=== PATIENT | female | born 1940 | race Caucasian/White ===

== ENCOUNTER 2017-10-20 15:23 | Inpatient (IN) | payer MEDICARE, OTHER ==
[2017-10-20] MEDS ORDERED: RX INFO: IV CONTRAST WAS GIVEN 1 EACH MISC MISCELLANE PRN (16:57)
[2017-10-20] MEDS ORDERED: KETOROLAC 30 MG/ML 1 ML VIAL IVP STA (16:57)
--- NOTE | 2017-10-20 16:59 | ED ---
Abdominal Pain HPI - General Chief Complaint: Abdominal Pain Stated Complaint: abd pain Time Seen by Provider: 10/20/17 16:17 Source: patient Mode of arrival: ambulatory Limitations: no limitations - History of Present Illness Initial Comments: 77-year-old female presents emergency Department chief complaint of abdominal pain. Patient states started approximately 2 hours prior arrival. She states it's in her midabdomen sharp pain. She states nonradiating. Denies any chest pain or shortness of breath. Patient denies any fever, chills. She states she is very nauseated and she had a few episodes of vomiting. Patient states that she has no back pain no headache no dizziness. Denies any dysuria hematuria. Patient denies any sick contacts. No diarrhea no constipation. Patient had prior cholecystectomy and states that the pain seems to be similar to when she had problems with her gallbladder. - Related Data Home Medications Medication Instructions Recorded Confirmed Cyclobenzaprine [Flexeril] 5 mg PO Q8HR 08/08/15 08/08/15 HYDROcodone/APAP 7.5-325MG [[place] 1 tab PO Q6HR PRN 08/08/15 08/08/15 7.5-325] hydrOXYzine PAMOATE [Hydroxyzine 50 mg PO Q6H PRN 08/08/15 08/08/15 Pamoate] methylPREDNISolone Dose Pack 4 mg PO DIRECTED 08/08/15 08/08/15 [Medrol Dose Pack] Previous Rx's Medication Instructions Recorded Cyclobenzaprine [Flexeril] 1 - 2 tab PO TID #20 tablet 08/08/15 Ibuprofen [Motrin] 600 mg PO Q6HR PRN #40 day 08/08/15 Omeprazole [PriLOSEC] 10 mg PO AC-BRKFST 14 Days cap 08/08/15 hydrOXYzine PAMOATE [Vistaril] 25 mg PO QID #20 cap 08/08/15 Allergies Allergy/AdvReac Type Severity Reaction Status Date / Time codeine AdvReac Nausea Verified 08/08/15 11:15 Review of Systems ROS Statement: Those systems with pertinent positive or pertinent negative responses have been documented in the HPI. ROS Other: All systems not noted in ROS Statement are negative. Past Medical History Additional Past Medical History / Comment(s): chronic pain History of Any Multi-Drug Resistant Organisms: None Reported Past Surgical History: Cholecystectomy Additional Past Surgical History / Comment(s): hemorroidectomy, cyst from ovary Past Psychological History: No Psychological Hx Reported Smoking Status: Never smoker Past Alcohol Use History: Occasional Past Drug Use History: None Reported General Exam Limitations: no limitations General appearance: alert, in no apparent distress Head exam: Present: atraumatic, normocephalic, normal inspection Respiratory exam: Present: normal lung sounds bilaterally. Absent: respiratory distress, wheezes, rales, rhonchi, stridor Cardiovascular Exam: Present: regular rate, normal rhythm, normal heart sounds. Absent: systolic murmur, diastolic murmur, rubs, gallop, clicks GI/Abdominal exam: Present: soft, tenderness (Moderate midabdominal tenderness) , normal bowel sounds. Absent: distended, guarding, rebound, rigid Back exam: Absent: CVA tenderness (R), CVA tenderness (L) Skin exam: Present: warm, dry, intact, normal color. Absent: rash Course Vital Signs 10/20/17 10/20/17 15:25 18:59 Temperature 97.3 F L 98.7 F Pulse Rate 71 95 Respiratory 18 18 Rate Blood Pressure 187/74 169/75 O2 Sat by Pulse 97 95 Oximetry Medical Decision Making - Lab Data Result diagrams: 10/20/17 16:38 10/20/17 16:38 Lab Results 10/20/17 10/20/17 10/20/17 Range/Units 16:38 16:38 16:38 WBC 14.4 H (3.8-10.6) k/uL RBC 4.58 (3.80-5.40) m/uL Hgb 13.9 (11.4-16.0) gm/dL Hct 43.6 (34.0-46.0) % MCV 95.2 (80.0-100.0) fL MCH 30.4 (25.0-35.0) pg MCHC 31.9 (31.0-37.0) g/dL RDW 12.6 (11.5-15.5) % Plt Count 215 (150-450) k/uL Neutrophils % 85 % Lymphocytes % 10 % Monocytes % 4 % Eosinophils % 1 % Basophils % 0 % Neutrophils # 12.2 H (1.3-7.7) k/uL Lymphocytes # 1.4 (1.0-4.8) k/uL Monocytes # 0.6 (0-1.0) k/uL Eosinophils # 0.1 (0-0.7) k/uL Basophils # 0.0 (0-0.2) k/uL Sodium 143 (137-145) mmol/L Potassium 4.4 (3.5-5.1) mmol/L Chloride 103 (98-107) mmol/L Carbon Dioxide 23 (22-30) mmol/L Anion Gap 17 mmol/L BUN 26 H (7-17) mg/dL Creatinine 0.90 (0.52-1.04) mg/dL Est GFR (CKD-EPI)AfAm 71 (>60 ml/min/1.73 sqM) Est GFR (CKD-EPI)NonAf 61 (>60 ml/min/1.73 sqM) Glucose 128 H (74-99) mg/dL Plasma Lactic Acid David 2.1 H* (0.7-2.0) mmol/L Calcium 9.6 (8.4-10.2) mg/dL Total Bilirubin 0.6 (0.2-1.3) mg/dL AST 33 (14-36) U/L ALT 34 (9-52) U/L Alkaline Phosphatase 84 (38-126) U/L Troponin I (0.000-0.034) ng/mL Total Protein 7.0 (6.3-8.2) g/dL Albumin 4.2 (3.5-5.0) g/dL Amylase 2911 H* (30-110) U/L Lipase >58501 H (23-300) U/L Urine Color Urine Appearance (Clear) Urine pH (5.0-8.0) Ur Specific [place] (1.001-1.035) Urine Protein (Negative) Urine Glucose (UA) (Negative) Urine Blood (Negative) Urine Nitrite (Negative) Urine Bilirubin (Negative) Urine Urobilinogen (<2.0) mg/dL Ur Leukocyte Esterase (Negative) Urine WBC (0-5) /hpf Ur Squamous Epith Cells (0-4) /hpf Amorphous Sediment (None) /hpf Urine Mucus (None) /hpf 10/20/17 10/20/17 Range/Units 16:38 16:38 WBC (3.8-10.6) k/uL RBC (3.80-5.40) m/uL Hgb (11.4-16.0) gm/dL Hct (34.0-46.0) % MCV (80.0-100.0) fL MCH (25.0-35.0) pg MCHC (31.0-37.0) g/dL RDW (11.5-15.5) % Plt Count (150-450) k/uL Neutrophils % % Lymphocytes % % Monocytes % % Eosinophils % % Basophils % % Neutrophils # (1.3-7.7) k/uL Lymphocytes # (1.0-4.8) k/uL Monocytes # (0-1.0) k/uL Eosinophils # (0-0.7) k/uL Basophils # (0-0.2) k/uL Sodium (137-145) mmol/L Potassium (3.5-5.1) mmol/L Chloride (98-107) mmol/L Carbon Dioxide (22-30) mmol/L Anion Gap mmol/L BUN (7-17) mg/dL Creatinine (0.52-1.04) mg/dL Est GFR (CKD-EPI)AfAm (>60 ml/min/1.73 sqM) Est GFR (CKD-EPI)NonAf (>60 ml/min/1.73 sqM) Glucose (74-99) mg/dL Plasma Lactic Acid David (0.7-2.0) mmol/L Calcium (8.4-10.2) mg/dL Total Bilirubin (0.2-1.3) mg/dL AST (14-36) U/L ALT (9-52) U/L Alkaline Phosphatase (38-126) U/L Troponin I <0.012 (0.000-0.034) ng/mL Total Protein (6.3-8.2) g/dL Albumin (3.5-5.0) g/dL Amylase (30-110) U/L Lipase (23-300) U/L Urine Color Yellow Urine Appearance Cloudy H (Clear) Urine pH 7.5 (5.0-8.0) Ur Specific [place] 1.021 (1.001-1.035) Urine Protein 1+ H (Negative) Urine Glucose (UA) Negative (Negative) Urine Blood Negative (Negative) Urine Nitrite Negative (Negative) Urine Bilirubin Negative (Negative) Urine Urobilinogen <2.0 (<2.0) mg/dL Ur Leukocyte Esterase Negative (Negative) Urine WBC 2 (0-5) /hpf Ur Squamous Epith Cells 1 (0-4) /hpf Amorphous Sediment Occasional H (None) /hpf Urine Mucus Rare H (None) /hpf 10/20/17 19:12 EKG performed at 16:56 no sinus rhythm with a rate of 66 PA 184 QRS 80 QT/QTC 410/429 Disposition Clinical Impression: Acute pancreatitis, Abdominal pain Disposition: ADMITTED IP TO THIS HOSP Condition: Fair Referrals: John Tovar MD [Primary Care Provider] - 1-2 days
--- NOTE | 2017-10-20 17:06 | XR ---
EXAMINATION TYPE: XR KUB DATE OF EXAM: 10/20/2017 COMPARISON: NONE HISTORY: Pain and swelling TECHNIQUE: 2 views upright FINDINGS: There is no sign of intestinal obstruction or pneumoperitoneum. Fecal pattern is normal. Ada ng bases show subsegmental atelectasis on the left side. There are no pathologic calcifications over the kidneys. IMPRESSION: Nonacute abdomen.
[2017-10-20] MEDS ORDERED: ONDANSETRON 4 MG/2 ML VIAL IVP STA ×2 (17:08→19:12)
[2017-10-20] MEDS ORDERED: SODIUM CHLORIDE 0.9% 1,000 ML IV ONE ×2 (17:08→19:07)
[2017-10-20 18:40] LABS: ALT 34 U/L (9-52); AST 33 U/L (14-36); Albumin 4.2 g/dL (3.5-5.0); Alkaline Phosphatase 84 U/L (38-126); Anion Gap 17 mmol/L; Blood Urea Nitrogen 26 mg/dL (7-17); Calcium 9.6 mg/dL (8.4-10.2); Carbon Dioxide 23 mmol/L (22-30); Chloride 103 mmol/L (98-107); Glucose 128 mg/dL (74-99); Potassium 4.4 mmol/L (3.5-5.1); Sodium 143 mmol/L (137-145); Total Bilirubin 0.6 mg/dL (0.2-1.3)
[2017-10-20 18:42] LABS: Basophils % (A) 0 %; Eosinophils # (A) 0.1 k/uL (0-0.7); Eosinophils % (A) 1 %; HCT 43.6 % (34.0-46.0); HGB 13.9 gm/dL (11.4-16.0); Lymphocytes # (A) 1.4 k/uL (1.0-4.8); Lymphocytes % (A) 10 %; MCH 30.4 pg (25.0-35.0); MCHC 31.9 g/dL (31.0-37.0); MCV 95.2 fL (80.0-100.0); Monocytes # (A) 0.6 k/uL (0-1.0); Monocytes % (A) 4 %; Neutrophils # (A) 12.2 k/uL (1.3-7.7); Neutrophils % (A) 85 %; Platelet Count 215 k/uL (150-450); RBC 4.58 m/uL (3.80-5.40); RDW 12.6 % (11.5-15.5); WBC 14.4 k/uL (3.8-10.6)
[2017-10-20 18:46] LABS: Amorphous Sediment,Urine Occasional /hpf; Appearance,Urine Cloudy (Clear); Bilirubin,Urine Negative (Negative); Blood,Urine Negative (Negative); Color,Urine Yellow; Glucose,Urine (UA) Negative (Negative); Ketones,Urine 2+ (Negative); Leukocyte Esterase,Urine Negative (Negative); Mucus,Urine Rare /hpf; Nitrite,Urine Negative (Negative); PH, Urine 7.5 (5.0-8.0); Protein,Urine 1+ (Negative); Specific Gravity,Urine 1.021 (1.001-1.035); Squamous Epithelial Cell,Urine 1 /hpf (0-4); Urobilinogen,Urine <2.0 mg/dL (<2.0); WBC,Urine 2 /hpf (0-5)
--- NOTE | 2017-10-20 19:04 | CT ---
EXAMINATION TYPE: CT abdomen pelvis w con DATE OF EXAM: 10/20/2017 COMPARISON: NONE HISTORY: Patient complains of epigastric pain and vomiting. CT DLP: 409.7 mGycm Automated exposure control for dose reduction was used. CONTRAST: CT scan of the abdomen pelvis is performed with IV Contrast, patient injected with 80 mL of Isovue 30 0. FINDINGS- LUNG BASES-subsegmental changes involving the lung bases.. LIVER/GB-2.5 cm hepatic lesion measures 5 Hounsfield units compatible simple cyst.. Postcholecystecto my changes noted. Additional less than 5 mm hypodensity within the inferior margin of the right lobe the liver is too small to characterize. PANCREAS-there are small amount of fluid surrounding the pancreatic head. There is a small amount of fluid in left paracolic Gutter with ill-definition of the peripancreatic fat.. SPLEEN- No gross abnormality is seen. ADRENALS- No gross abnormality is seen. KIDNEYS/BLADDER- no hydronephrosis. Hypodensities within the kidneys are too small to characterize.. BOWEL- no bowel dilatation. Normal appendix. LYMPH NODES- No greater than 1cm abdominal or pelvic lymph nodes are appreciated. OSSEOUS STRUCTURES-hypertrophic and degenerative change of the spine noted.. OTHER- aorta of normal caliber. IMPRESSION- 1. There is a small amount of fluid surrounding the pancreas extending the left paracolic gutter. A f ew prominent small bowel loops are noted in the region. Air is seen distally. Differential diagnosis would include pancreatitis versus enterocolitis or peptic ulcer disease. This would include ischemic enteritis. Correlate clinically.
[2017-10-20 19:06] LABS: Lipase >20000 U/L (23-300)
[2017-10-20 19:07] LABS: Amylase 2911 U/L (30-110)
[2017-10-20] MEDS ORDERED: MORPHINE SULFATE 4 MG/ML SYRINGE IVP STA (19:12)
[2017-10-20] MEDS ORDERED: NALOXONE 0.4 MG/ML 1 ML VIAL IV PRN (19:13)
[2017-10-20] MEDS ORDERED: ONDANSETRON 4 MG/2 ML VIAL IVP PRN (19:13)
[2017-10-20] MEDS ORDERED: LORazepam 2 MG/ML INJ IV PRN (19:13)
[2017-10-20] MEDS ORDERED: SODIUM CHLORIDE 0.9% 1,000 ML IV SCH (19:15)
[2017-10-20] MEDS ORDERED: metroNIDAZOLE-NS PMX 500 MG in SALINE 1 100ML.BAG IVPB STA (19:16)
[2017-10-20] MEDS ORDERED: LEVOFLOXACIN 750MG-D5W PMX 750 MG in DEXTROSE/WATER 1 150ML.BAG IVPB STA (19:16)
[2017-10-20] MEDS ORDERED: MELATONIN 3 MG TABLET PO PRN (20:29)
[2017-10-20] MEDS ORDERED: DOCUSATE 100 MG CAP PO PRN (20:29)
--- NOTE | 2017-10-20 20:33 | P.HPIM ---
History of Present Illness H&P Date: 10/20/17 Chief Complaint: abdominal pain Is a 77-year-old female with a past medical history of prior subarachnoid hemorrhage, chronic pain, and alcohol use who presented to the ER with complaints of sudden onset of abdominal pain. In the ER she underwent an extensive evaluation. On arrival she was found be slightly hypertensive with a blood pressure 187/74. Initial laboratory analysis showed an elevated white blood cell count 14.4, elevated Bielen at 26, slightly elevated lactic acid at 2.1. Her amylase and lipase were severely elevated. Urinalysis was unremarkable. She underwent a CT abdomen and pelvis which showed a small amount of fluid surrounding the pancreas extending into the pericolic gutter. Differential diagnosis was pancreatitis versus enterocolitis or peptic ulcer disease. Possible ischemic enteritis. Patient seen and examined at bedside. She had ate lunch today and then had a small snack. Approximately 30-45 minutes later she started having epigastric pain that radiated down the sound heard abdomen and then into her right and left lower quadrants. 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 She then had 3 episodes of vomiting and decided to present to the hospital. She had 2 additional vomiting episodes of bile only. She states that she had a little bit of abdominal pain yesterday but nothing significant and that went away. She has weight filling been on a weight loss plan and has lost approximately 6 pounds. She denies any recent changes in medication. She only takes an over- the-counter multivitamin and both parents for her pain. She has been taking this for about 5 months. She states that 2 weeks ago she tripped and fell. After that Dr. Tovar sent her for an extensive evaluation. She underwent a CAT scan of her head which per her was negative. She then saw Dr. Villalobos of cardiology and had a negative stress test. She denies any fevers or chills. She has chronic constipation which is unchanged. She has chronic urinary frequency which is unchanged. She has not been sick or ill recently. She denies any cough, cold, shortness of breath, or chest pain. She does drink alcohol but has not had any recent significant changes in this. She states her abdominal pain felt similar to when she had gallbladder issues several years ago. She had a colonoscopy approximately 2 years ago. Review of Systems Positives: Vomiting, abdominal pain Pertinent positives and negatives as discussed in HPI, a complete review of systems was performed and all other systems are negative. Past Medical History Additional Past Medical History / Comment(s): chronic pain, subarachnoid hemorrhage History of Any Multi-Drug Resistant Organisms: None Reported Past Surgical History: Cholecystectomy Additional Past Surgical History / Comment(s): hemorroidectomy, cyst from ovary Past Psychological History: No Psychological Hx Reported Smoking Status: Never smoker Past Alcohol Use History: Occasional Additional Past Alcohol Use History / Comment(s): Has 2-3 beers weekly and one mixed drink Past Drug Use History: None Reported Additional History: Lives alone, no assistive devices - Past Family History Mother Additional Family Medical History / Comment(s): Mother from old age grandmother Additional Family Medical History / Comment(s): Stomach cancer at age 72 Medications and Allergies Home Medications Medication Instructions Recorded Confirmed Type Cyclobenzaprine [Flexeril] 1 - 2 tab PO TID #20 tablet 08/08/15 Rx Cyclobenzaprine [Flexeril] 5 mg PO Q8HR 08/08/15 08/08/15 History HYDROcodone/APAP 7.5-325MG [[place] 1 tab PO Q6HR PRN 08/08/15 08/08/15 History 7.5-325] Ibuprofen [Motrin] 600 mg PO Q6HR PRN #40 day 08/08/15 Rx Omeprazole [PriLOSEC] 10 mg PO AC-BRKFST 14 Days cap 08/08/15 Rx hydrOXYzine PAMOATE [Hydroxyzine 50 mg PO Q6H PRN 08/08/15 08/08/15 History Pamoate] hydrOXYzine PAMOATE [Vistaril] 25 mg PO QID #20 cap 08/08/15 Rx methylPREDNISolone Dose Pack 4 mg PO DIRECTED 08/08/15 08/08/15 History [Medrol Dose Pack] Allergies Allergy/AdvReac Type Severity Reaction Status Date / Time codeine AdvReac Nausea Verified 08/08/15 11:15 Physical Exam Osteopathic Statement: *. No significant issues noted on an osteopathic structural exam other than those noted in the History and Physical/Consult. Vitals: Vital Signs Temp Pulse Resp BP Pulse Ox 10/20/17 18:59 98.7 F 95 18 169/75 95 10/20/17 15:25 97.3 F L 71 18 187/74 97 Intake and Output 10/20/17 10/20/17 10/20/17 06:59 14:59 22:59 Other: Voiding Method Toilet Weight 55.338 kg General: non toxic, mild distress secondary to pain, appears at stated age, normal weight Derm: no unusual rashes/lesions no unusual ecchymoses, warm, dry Head: atraumatic, normocephalic, symmetric Eyes: EOMI, no lid lag, anicteric sclera, pupils equal round reactive to light ENT: Nose and ears atraumatic, no thrush, no pharyngeal erythema Neck: No thyromegaly, no cervical lymphadenopathy, trachea midline, supple Mouth: no lip lesion, mucus membranes moist Cardiovascular: S1S2 reg, no murmur, positive posterior tibial pulse bilateral, no edema, capillary refill less than 2 seconds Lungs: CTA bilateral, no rhonchi, no rales , no accessory muscle use Abdominal: soft, tender to palpation diffusely, no guarding, no appreciable organomegaly, normal bowel sounds Ext: no gross muscle atrophy, muscle strength 5 out of 5 in all 4 extremities grossly, no contractures, Neuro: CN II-XI grossly intact, light touch intact all 4 extremities, finger to nose within normal limits, Psych: Alert, oriented, appropriate affect Results CBC & Chem 7: 10/20/17 16:38 10/20/17 16:38 Labs: Abnormal Lab Results - Last 24 Hours (Table) 10/20/17 10/20/17 10/20/17 Range/Units 16:38 16:38 16:38 WBC 14.4 H (3.8-10.6) k/uL Neutrophils # 12.2 H (1.3-7.7) k/uL BUN 26 H (7-17) mg/dL Glucose 128 H (74-99) mg/dL Plasma Lactic Acid David 2.1 H* (0.7-2.0) mmol/L Amylase 2911 H* (30-110) U/L Lipase >76414 H (23-300) U/L Urine Appearance (Clear) Urine Protein (Negative) Urine Ketones (Negative) Amorphous Sediment (None) /hpf Urine Mucus (None) /hpf 10/20/17 Range/Units 16:38 WBC (3.8-10.6) k/uL Neutrophils # (1.3-7.7) k/uL BUN (7-17) mg/dL Glucose (74-99) mg/dL Plasma Lactic Acid David (0.7-2.0) mmol/L Amylase (30-110) U/L Lipase (23-300) U/L Urine Appearance Cloudy H (Clear) Urine Protein 1+ H (Negative) Urine Ketones 2+ H (Negative) Amorphous Sediment Occasional H (None) /hpf Urine Mucus Rare H (None) /hpf Comments: EKG as reviewed by me revealed normal sinus rhythm at a rate of 66 with normal axis and normal intervals CT scan - abdomen: report reviewed CT scan - pelvis: report reviewed Thrombosis Risk Factor Assmnt - DVT/VTE Prophylaxis DVT/VTE Prophylaxis: Pharmacologic Prophylaxis ordered Assessment and Plan Assessment: Acute Pancreatitis - IVF will increase rate, NPO, pain control - check triglycerides, gallbladder removed - will repeat lipase in the AM to ensure it is down going - [place] II score is 8 due to advanced age. Mild dehydration - IVF - repeat BUN/CR in AM Elevated BP due to pain, not diagnostic of hypertensive urgency - follow BP closely - oral medications is remain greater than 190 Chronic pain - hold NSAID PO - voltaren gel as needed ETOH use - encourage abstinence Recent fall - fall precaution - PT eval Surrogate decision-maker: Nam Montero CODE STATUS:Full, would not want to be kept alive on vent longterm DVT prophylaxis: Lovenox Discussed with: Patient, ED physician, Nursing, family Anticipated discharge: 3-[address]: home with home health A total of 65 minutes was spent on the care of this complex patient more than 50 % of the time was spent in counseling and care coordination.
[2017-10-20] MEDS: LACTATED RINGERS 1,000 ML IV SCH (21:53)
[2017-10-21 02:05] VITALS: BMI 24.0
[2017-10-21] MEDS: MORPHINE SULFATE 4 MG/ML SYRINGE IV PRN ×2 (02:07→22:33)
[2017-10-21] MEDS: LACTATED RINGERS 1,000 ML IV SCH ×4 (06:20→22:35)
[2017-10-21 08:00] LABS: HCT 36.1 % (34.0-46.0); HGB 11.7 gm/dL (11.4-16.0); MCH 30.9 pg (25.0-35.0); MCHC 32.4 g/dL (31.0-37.0); MCV 95.1 fL (80.0-100.0); Mean Platelet Volume 7.6; Platelet Count 186 k/uL (150-450); RBC 3.79 m/uL (3.80-5.40); RDW 12.6 % (11.5-15.5); WBC 7.6 k/uL (3.8-10.6)
[2017-10-21 08:09] LABS: ALT 39 U/L (9-52); AST 26 U/L (14-36); Albumin 3.2 g/dL (3.5-5.0); Alkaline Phosphatase 57 U/L (38-126); Anion Gap 10 mmol/L; Blood Urea Nitrogen 14 mg/dL (7-17); Calcium 8.2 mg/dL (8.4-10.2); Carbon Dioxide 25 mmol/L (22-30); Chloride 105 mmol/L (98-107); Cholesterol 144 mg/dL (<200); Glucose 99 mg/dL (74-99); HDL Cholesterol 53 mg/dL (40-60); LDL Cholesterol,Calculated 72 mg/dL (0-99); Potassium 3.9 mmol/L (3.5-5.1); Sodium 140 mmol/L (137-145); Total Bilirubin 0.7 mg/dL (0.2-1.3); Total Protein 5.4 g/dL (6.3-8.2); Triglycerides 97 mg/dL (<150)
[2017-10-21] MEDS: ENOXAPARIN 40 MG/0.4 ML SYRINGE SQ SCH (08:38)
[2017-10-21] MEDS: PANTOPRAZOLE 40 MG/10 ML VIAL IV SCH (08:38)
[2017-10-21] MEDS: KETOROLAC 30 MG/ML 1 ML VIAL IVP PRN (11:49)
--- NOTE | 2017-10-21 13:39 | P.PN ---
Subjective Progress Note Date: 10/21/17 Principal diagnosis: Abdominal pain Patient was having 4 out of 10 abdominal pain this morning, she was given some morphine. No nausea or vomiting. Patient told me that she drinks 3-4 beers in addition to 2 shots of martini a week. Objective - Vital Signs Vital signs: Vital Signs Temp 98.7 F 10/21/17 06:15 Pulse 91 10/21/17 06:15 Resp 16 10/21/17 06:15 BP 150/73 10/21/17 06:15 Pulse Ox 97 10/21/17 06:15 Intake & Output 10/20/17 10/21/17 10/21/17 18:59 06:59 18:59 Weight 55.338 kg 59.5 kg Other: Voiding Method Toilet Toilet # Voids 2 - Exam Constitutional: No acute distress, conversant, pleasant Eyes:Anicteric sclerae, moist conjunctiva, no lid-lag, PERRLA, ENMT: Oropharynx clear, no erythema, exudates Neck: Supple, FROM, no masses, or JVD, No carotid bruits, No thyromegaly Lungs: Clear to auscultation, Clear to percussion, Normal respiratory effort, no accessory muscle use Cardiovascular: Heart regular in rate and rhythm, No murmurs, gallops, or rubs, No peripheral edema Abdominal: Soft, nonspecific diffuse abdominal tenderness, no guarding, rebound or rigidity, Normoactive bowel sounds, No hepatomegaly, No splenomegaly, No palpable mass Skin: Normal temperature, tone, texture, turgor, no induration, No subcutaneous nodules, No rash, lesions, No ulcers Extremities: No digital cyanosis, No clubbing, Pedal pulses intact and symmetrical, Radial pulses intact and symmetrical, No calf tenderness Psychiatric: Alert and oriented to person, place and time, appropriate affect, intact judgement Neuro: Muscles Strength 5/5 in all 4 extremities, Sensation to light touch grossly present throughout, Cranial nerves II-XII grossly intact, no focal sensory deficits - Labs CBC & Chem 7: 10/21/17 07:17 10/21/17 07:17 Labs: Abnormal Lab Results - Last 24 Hours (Table) 10/20/17 10/20/17 10/20/17 Range/Units 16:38 16:38 16:38 WBC 14.4 H (3.8-10.6) k/uL RBC (3.80-5.40) m/uL Neutrophils # 12.2 H (1.3-7.7) k/uL BUN 26 H (7-17) mg/dL Glucose 128 H (74-99) mg/dL Plasma Lactic Acid David 2.1 H* (0.7-2.0) mmol/L Calcium (8.4-10.2) mg/dL Total Protein (6.3-8.2) g/dL Albumin (3.5-5.0) g/dL Amylase 2911 H* (30-110) U/L Lipase >09333 H (23-300) U/L Urine Appearance (Clear) Urine Protein (Negative) Urine Ketones (Negative) Amorphous Sediment (None) /hpf Urine Mucus (None) /hpf 10/20/17 10/21/17 10/21/17 Range/Units 16:38 07:17 07:17 WBC (3.8-10.6) k/uL RBC 3.79 L (3.80-5.40) m/uL Neutrophils # (1.3-7.7) k/uL BUN (7-17) mg/dL Glucose (74-99) mg/dL Plasma Lactic Acid David (0.7-2.0) mmol/L Calcium 8.2 L (8.4-10.2) mg/dL Total Protein 5.4 L (6.3-8.2) g/dL Albumin 3.2 L (3.5-5.0) g/dL Amylase (30-110) U/L Lipase (23-300) U/L Urine Appearance Cloudy H (Clear) Urine Protein 1+ H (Negative) Urine Ketones 2+ H (Negative) Amorphous Sediment Occasional H (None) /hpf Urine Mucus Rare H (None) /hpf Assessment and Plan Plan: Acute Pancreatitis - Continue IVF, NPO, pain control - Patient not sure if she had her gallbladder removed, will check right upper quadrant ultrasound - Triglycerides levels within normal limits - Will repeat lipase in the AM to ensure it is down going Mild dehydration - IVF - Repeat BUN/CR in AM Elevated BP due to pain, not diagnostic of HTN - BP still slightly elevated Recent fall - fall precaution - PT eval
--- NOTE | 2017-10-21 14:45 | P.GSCN ---
History of Present Illness Consult date: 10/21/17 Reason for Consult: Pancreatitis History of present illness: The patient is a 77-year-old female who began having some abdominal discomfort on Sunday. It felt like heartburn or discomfort in the mid abdomen. Yesterday she had a return of pain after eating some beef stew for lunch and was worse. She developed some nausea and vomiting so came into the emergency department. Denies any previous history of pancreatitis. She has had previous open cholecystectomy. She admits to drinking 2 beers earlier in the week. Prior to that it began about 5 days. No new medications. Review of Systems All systems: negative Past Medical History Additional Past Medical History / Comment(s): Chronic pain, subarachnoid hemorrhage History of Any Multi-Drug Resistant Organisms: None Reported Past Surgical History: Cholecystectomy Additional Past Surgical History / Comment(s): Hemorrhoidectomy, ovarian cyst, colonoscopy Past Anesthesia/Blood Transfusion Reactions: No Reported Reaction Past Psychological History: No Psychological Hx Reported Smoking Status: Never smoker Past Alcohol Use History: Occasional Additional Past Alcohol Use History / Comment(s): Has 2-3 beers weekly and one mixed drink. Past Drug Use History: None Reported - Past Family History Mother Additional Family Medical History / Comment(s): Mother from old age grandmother Additional Family Medical History / Comment(s): Stomach cancer at age 72 Medications and Allergies Home Medications Medication Instructions Recorded Confirmed Type Diclofenac Sodium [Voltaren] 75 mg PO BID PRN 10/21/17 10/21/17 History Allergies Allergy/AdvReac Type Severity Reaction Status Date / Time codeine AdvReac Abdominal Verified 10/21/17 11:04 Pain Surgical - Exam Osteopathic Statement: *. No significant issues noted on an osteopathic structural exam other than those noted in the History and Physical/Consult. Vital Signs Temp Pulse Resp BP Pulse Ox 97.3 F L 71 18 187/74 97 10/20/17 15:25 10/20/17 15:25 10/20/17 15:25 10/20/17 15:25 10/20/17 15:25 - General well developed, well nourished, no distress - Eyes normal ocular movement - ENT normal mucosa - Neck trachea midline - Respiratory normal expansion, normal respiratory effort, clear to auscultation - Cardiovascular Rhythm: regular - Abdomen Abdomen: soft, tender (Mild epigastric), bowel sounds, surgical scars (Right subcostal), no guarding, no rigid, no rebound, no distended Results - Labs 10/21/17 07:17 10/21/17 07:17 Abnormal Lab Results - Last 24 Hours (Table) 10/20/17 10/20/17 10/20/17 Range/Units 16:38 16:38 16:38 WBC 14.4 H (3.8-10.6) k/uL RBC (3.80-5.40) m/uL Neutrophils # 12.2 H (1.3-7.7) k/uL BUN 26 H (7-17) mg/dL Glucose 128 H (74-99) mg/dL Plasma Lactic Acid David 2.1 H* (0.7-2.0) mmol/L Calcium (8.4-10.2) mg/dL Total Protein (6.3-8.2) g/dL Albumin (3.5-5.0) g/dL Amylase 2911 H* (30-110) U/L Lipase >88878 H (23-300) U/L Urine Appearance (Clear) Urine Protein (Negative) Urine Ketones (Negative) Amorphous Sediment (None) /hpf Urine Mucus (None) /hpf 10/20/17 10/21/17 10/21/17 Range/Units 16:38 07:17 07:17 WBC (3.8-10.6) k/uL RBC 3.79 L (3.80-5.40) m/uL Neutrophils # (1.3-7.7) k/uL BUN (7-17) mg/dL Glucose (74-99) mg/dL Plasma Lactic Acid David (0.7-2.0) mmol/L Calcium 8.2 L (8.4-10.2) mg/dL Total Protein 5.4 L (6.3-8.2) g/dL Albumin 3.2 L (3.5-5.0) g/dL Amylase (30-110) U/L Lipase (23-300) U/L Urine Appearance Cloudy H (Clear) Urine Protein 1+ H (Negative) Urine Ketones 2+ H (Negative) Amorphous Sediment Occasional H (None) /hpf Urine Mucus Rare H (None) /hpf Diabetes panel 10/20/17 10/21/17 Range/Units 16:38 07:17 Sodium 143 140 (137-145) mmol/L Potassium 4.4 3.9 (3.5-5.1) mmol/L Chloride 103 105 (98-107) mmol/L Carbon Dioxide 23 25 (22-30) mmol/L BUN 26 H 14 (7-17) mg/dL Creatinine 0.90 0.70 (0.52-1.04) mg/dL Glucose 128 H 99 (74-99) mg/dL Calcium 9.6 8.2 L (8.4-10.2) mg/dL AST 33 26 (14-36) U/L ALT 34 39 (9-52) U/L Alkaline Phosphatase 84 57 (38-126) U/L Total Protein 7.0 5.4 L (6.3-8.2) g/dL Albumin 4.2 3.2 L (3.5-5.0) g/dL Triglycerides 97 (<150) mg/dL HDL Cholesterol 53 (40-60) mg/dL Calcium panel 10/20/17 10/21/17 Range/Units 16:38 07:17 Calcium 9.6 8.2 L (8.4-10.2) mg/dL Albumin 4.2 3.2 L (3.5-5.0) g/dL Pituitary panel 10/20/17 10/21/17 Range/Units 16:38 07:17 Sodium 143 140 (137-145) mmol/L Potassium 4.4 3.9 (3.5-5.1) mmol/L Chloride 103 105 (98-107) mmol/L Carbon Dioxide 23 25 (22-30) mmol/L BUN 26 H 14 (7-17) mg/dL Creatinine 0.90 0.70 (0.52-1.04) mg/dL Glucose 128 H 99 (74-99) mg/dL Calcium 9.6 8.2 L (8.4-10.2) mg/dL Adrenal panel 10/20/17 10/21/17 Range/Units 16:38 07:17 Sodium 143 140 (137-145) mmol/L Potassium 4.4 3.9 (3.5-5.1) mmol/L Chloride 103 105 (98-107) mmol/L Carbon Dioxide 23 25 (22-30) mmol/L BUN 26 H 14 (7-17) mg/dL Creatinine 0.90 0.70 (0.52-1.04) mg/dL Glucose 128 H 99 (74-99) mg/dL Calcium 9.6 8.2 L (8.4-10.2) mg/dL Total Bilirubin 0.6 0.7 (0.2-1.3) mg/dL AST 33 26 (14-36) U/L ALT 34 39 (9-52) U/L Alkaline Phosphatase 84 57 (38-126) U/L Total Protein 7.0 5.4 L (6.3-8.2) g/dL Albumin 4.2 3.2 L (3.5-5.0) g/dL - Imaging CT scan - abdomen: report reviewed, image reviewed Assessment and Plan (1) Abdominal pain Current Visit: Yes Status: Acute Code(s): R10.9 - UNSPECIFIED ABDOMINAL PAIN SNOMED Code(s): 49642507 (2) Acute pancreatitis Current Visit: Yes Status: Acute Code(s): K85.90 - ACUTE PANCREATITIS WITHOUT NECROSIS OR INFECTION, UNSP SNOMED Code(s): 147202498 Plan: The patient has had previous cholecystectomy. Therefore I doubt biliary cause. Recommend GI consult. Nonsurgical.
[2017-10-21] MEDS: ACETAMINOPHEN TAB 325 MG TAB PO PRN (18:07)
[2017-10-22] MEDS: LACTATED RINGERS 1,000 ML IV SCH ×3 (06:05→18:26)
[2017-10-22 08:13] LABS: Basophils % (A) 0 %; Eosinophils # (A) 0.2 k/uL (0-0.7); Eosinophils % (A) 2 %; HCT 35.4 % (34.0-46.0); HGB 11.5 gm/dL (11.4-16.0); Lymphocytes % (A) 12 %; MCH 30.5 pg (25.0-35.0); MCHC 32.4 g/dL (31.0-37.0); MCV 94.4 fL (80.0-100.0); Mean Platelet Volume 7.9; Monocytes # (A) 0.4 k/uL (0-1.0); Monocytes % (A) 4 %; Neutrophils % (A) 81 %; Platelet Count 178 k/uL (150-450); RBC 3.75 m/uL (3.80-5.40); RDW 12.6 % (11.5-15.5); WBC 8.7 k/uL (3.8-10.6)
[2017-10-22 08:38] LABS: ALT 33 U/L (9-52); AST 23 U/L (14-36); Albumin 2.9 g/dL (3.5-5.0); Alkaline Phosphatase 50 U/L (38-126); Anion Gap 8 mmol/L; Blood Urea Nitrogen 8 mg/dL (7-17); Calcium 8.2 mg/dL (8.4-10.2); Carbon Dioxide 26 mmol/L (22-30); Chloride 104 mmol/L (98-107); Glucose 80 mg/dL (74-99); Lipase 1237 U/L (23-300); Magnesium 1.8 mg/dL (1.6-2.3); Phosphorus 2.7 mg/dL (2.5-4.5); Potassium 3.9 mmol/L (3.5-5.1); Sodium 138 mmol/L (137-145); Total Bilirubin 0.9 mg/dL (0.2-1.3); Total Protein 5.1 g/dL (6.3-8.2)
[2017-10-22 08:58] LABS: Amylase 304 U/L (30-110)
[2017-10-22] MEDS: KETOROLAC 30 MG/ML 1 ML VIAL IVP PRN (09:06)
[2017-10-22] MEDS: PANTOPRAZOLE 40 MG/10 ML VIAL IV SCH (09:06)
[2017-10-22] MEDS: ENOXAPARIN 40 MG/0.4 ML SYRINGE SQ SCH (09:06)
[2017-10-22 10:30] LABS: IgG Subclass 3 30.1 mg/dL (11.0-85.0); IgG Subclass 4 18.6 mg/dL (3.0-175.0)
--- NOTE | 2017-10-22 12:12 | P.PN ---
Subjective Progress Note Date: 10/22/17 Principal diagnosis: Abdominal pain Patient is feeling better, still having some abdominal pain but that is improved. Vomited. Objective - Vital Signs Vital signs: Vital Signs Temp 100.1 F H 10/22/17 06:49 Pulse 92 10/22/17 06:49 Resp 18 10/22/17 06:49 BP 129/65 10/22/17 06:49 Pulse Ox 94 L 10/22/17 06:49 Intake & Output 10/21/17 10/22/17 10/22/17 18:59 06:59 18:59 Other: Voiding Method Toilet Toilet # Voids 3 2 - Exam Constitutional: No acute distress, conversant, pleasant Eyes:Anicteric sclerae, moist conjunctiva, no lid-lag, PERRLA, ENMT: Oropharynx clear, no erythema, exudates Neck: Supple, FROM, no masses, or JVD, No carotid bruits, No thyromegaly Lungs: Clear to auscultation, Clear to percussion, Normal respiratory effort, no accessory muscle use Cardiovascular: Heart regular in rate and rhythm, No murmurs, gallops, or rubs, No peripheral edema Abdominal: Soft, nonspecific diffuse abdominal tenderness, no guarding, rebound or rigidity, Normoactive bowel sounds, No hepatomegaly, No splenomegaly, No palpable mass Skin: Normal temperature, tone, texture, turgor, no induration, No subcutaneous nodules, No rash, lesions, No ulcers Extremities: No digital cyanosis, No clubbing, Pedal pulses intact and symmetrical, Radial pulses intact and symmetrical, No calf tenderness Psychiatric: Alert and oriented to person, place and time, appropriate affect, intact judgement Neuro: Muscles Strength 5/5 in all 4 extremities, Sensation to light touch grossly present throughout, Cranial nerves II-XII grossly intact, no focal sensory deficits - Labs CBC & Chem 7: 10/22/17 08:00 10/22/17 08:00 Labs: Abnormal Lab Results - Last 24 Hours (Table) 10/22/17 10/22/17 Range/Units 08:00 08:00 RBC 3.75 L (3.80-5.40) m/uL Calcium 8.2 L (8.4-10.2) mg/dL Total Protein 5.1 L (6.3-8.2) g/dL Albumin 2.9 L (3.5-5.0) g/dL Amylase 304 H* (30-110) U/L Lipase 1237 H (23-300) U/L Assessment and Plan Plan: Acute Pancreatitis - Continue IVF, NPO, pain control - Likely secondary to EtOH abuse - Status post cholecystectomy, surgery consulted--gallstones unlikely - Triglycerides levels within normal limits - Amylase and lipase trending down, continued to trend Mild dehydration - IVF Elevated BP due to pain, -Resolved -Not diagnostic of HTN -BP still slightly elevated Recent fall - fall precaution - PT eval
[2017-10-22 12:27] LABS: Procalcitonin 0.02 ng/mL (0.02-0.09)
[2017-10-22] MEDS: ACETAMINOPHEN TAB 325 MG TAB PO PRN (18:41)
[2017-10-22] MEDS: MORPHINE SULFATE 4 MG/ML SYRINGE IV PRN (20:48)
[2017-10-23] MEDS: LACTATED RINGERS 1,000 ML IV SCH ×4 (02:53→20:31)
[2017-10-23] MEDS: PANTOPRAZOLE 40 MG/10 ML VIAL IV SCH ×2 (08:14→08:24)
[2017-10-23] MEDS: ENOXAPARIN 40 MG/0.4 ML SYRINGE SQ SCH ×2 (08:14→08:24)
[2017-10-23] MEDS: KETOROLAC 30 MG/ML 1 ML VIAL IVP PRN (08:24)
[2017-10-23 08:42] LABS: Basophils % (A) 0 %; Eosinophils # (A) 0.2 k/uL (0-0.7); Eosinophils % (A) 2 %; HCT 35.2 % (34.0-46.0); HGB 11.2 gm/dL (11.4-16.0); Lymphocytes % (A) 10 %; MCH 30.1 pg (25.0-35.0); MCHC 31.9 g/dL (31.0-37.0); MCV 94.3 fL (80.0-100.0); Mean Platelet Volume 7.9; Monocytes # (A) 0.5 k/uL (0-1.0); Monocytes % (A) 5 %; Neutrophils # (A) 7.8 k/uL (1.3-7.7); Neutrophils % (A) 81 %; Platelet Count 175 k/uL (150-450); RBC 3.73 m/uL (3.80-5.40); RDW 12.4 % (11.5-15.5); WBC 9.7 k/uL (3.8-10.6)
[2017-10-23 09:01] LABS: Amylase 123 U/L (30-110); Anion Gap 14 mmol/L; Blood Urea Nitrogen 10 mg/dL (7-17); Calcium 8.4 mg/dL (8.4-10.2); Carbon Dioxide 23 mmol/L (22-30); Chloride 101 mmol/L (98-107); Glucose 64 mg/dL (74-99); Lipase 464 U/L (23-300); Potassium 4.3 mmol/L (3.5-5.1); Sodium 138 mmol/L (137-145)
--- NOTE | 2017-10-23 09:31 | P.PN ---
Subjective Progress Note Date: 10/23/17 Principal diagnosis: Patient seen in follow-up for acute pancreatitis Patient is seen and examined today, continues to have epigastric abdominal pain denies any nausea or vomiting. She is eager to eat. Denies passing bowel movements. Denies any fevers or chills. However she still reports asking for IV opiates to control her pain Objective - Vital Signs Vital signs: Vital Signs Temp 99.9 F H 10/23/17 07:00 Pulse 77 10/23/17 07:00 Resp 16 10/23/17 08:00 BP 118/50 10/23/17 07:00 Pulse Ox 94 L 10/23/17 07:00 Intake & Output 10/22/17 10/23/17 10/23/17 18:59 06:59 18:59 Intake Total 0 Balance 0 Intake: Oral 0 Other: Voiding Method Toilet Toilet # Voids 1 4 # Bowel Movements 0 - Exam Constitutional: vital signs stable, Not in acute distress, pleasant, conversant Lungs: Clear to auscultation bilaterally, clear to percussion, normal respiratory effort Cardiovascular: Regular rate and rhythm, no murmurs, no gallops, no rubs, no peripheral edema Gastrointestinal: Soft, positive tenderness to palpation over the epigastric region no rebound tenderness, positive voluntary guarding, no palpable hepatosplenomegally, bowel sounds positive Extremities: No digital cyanosis or clubbing, peripheral pulses palpable and equal over bilateral radial arteries and dorsalis pedis artery, no calf muscle tenderness Psych: Alert, oriented to place, person and time, appropriate affect, intact judgment - Labs CBC & Chem 7: 10/23/17 08:06 10/23/17 08:06 Labs: Abnormal Lab Results - Last 24 Hours (Table) 10/21/17 10/23/17 10/23/17 Range/Units 07:17 08:06 08:06 RBC 3.73 L (3.80-5.40) m/uL Hgb 11.2 L (11.4-16.0) gm/dL Neutrophils # 7.8 H (1.3-7.7) k/uL Glucose 64 L (74-99) mg/dL Amylase 123 H (30-110) U/L Lipase 464 H (23-300) U/L IgG1 402.0 L (405.0-1011.0) mg/dL Assessment and Plan Assessment: 77-year-old female with history of cholecystectomy, no history of pancreatitis. Presented with abdominal pain found to have acute pancreatitis, there is no clear cause for pancreatitis except for suspected alcohol which patient denies any heavy alcohol intake or any regular alcohol intake. Plan: # Acute pancreatitis unclear cause, possibly related to her alcohol intake, which she claims to be occasional , however this episode has happened after drinking alcohol continues to have epigastric pain , no nausea or vomiting continue with NPO transition to PO pain control, if this is successful in controlling her pain, possibly i would advance her diet to clear liquids by dinner time switch IV PPi to PO pepcid labs improving Status post cholecystectomy, surgery consulted--gallstones unlikely GI consultation for further input regarding causes of her acute pancreatitis attack #. Mild anemia could be dilutional component with iv fluids no evidence of GI bleeding at this time continue to monitor #Recent fall fall precaution PT eval #DVT prophylaxis Lovenox Plan is to see the patient tolerates by mouth painkillers that's the case I will advance her diet to clear liquids overnight at dinnertime and then advance it as tolerated in the morning to be ready for discharge tomorrow
[2017-10-23] MEDS: HYDROcodone/APAP 5-325MG 1 EACH TAB PO PRN ×2 (14:08→22:14)
[2017-10-23] MEDS: FAMOTIDINE 20 MG TAB PO SCH (20:31)
[2017-10-24] MEDS: LACTATED RINGERS 1,000 ML IV SCH ×3 (04:54→17:52)
[2017-10-24] MEDS: HYDROcodone/APAP 5-325MG 1 EACH TAB PO PRN ×3 (04:54→18:49)
[2017-10-24 08:10] LABS: HCT 30.6 % (34.0-46.0); MCH 30.5 pg (25.0-35.0); MCHC 32.6 g/dL (31.0-37.0); MCV 93.6 fL (80.0-100.0); Mean Platelet Volume 8.4; Platelet Count 163 k/uL (150-450); RBC 3.27 m/uL (3.80-5.40); RDW 12.4 % (11.5-15.5); WBC 8.3 k/uL (3.8-10.6)
[2017-10-24 08:33] LABS: Anion Gap 10 mmol/L; Blood Urea Nitrogen 8 mg/dL (7-17); Calcium 8.1 mg/dL (8.4-10.2); Carbon Dioxide 24 mmol/L (22-30); Chloride 103 mmol/L (98-107); Glucose 69 mg/dL (74-99); Potassium 3.7 mmol/L (3.5-5.1); Sodium 137 mmol/L (137-145)
[2017-10-24] MEDS: ENOXAPARIN 40 MG/0.4 ML SYRINGE SQ SCH (09:08)
[2017-10-24] MEDS: FAMOTIDINE 20 MG TAB PO SCH ×2 (09:09→21:42)
--- NOTE | 2017-10-24 09:34 | P.CONS ---
History of Present Illness - Reason for Consult Consult date: 10/24/17 pancreatitis Requesting physician: Maty Roland - History of Present Illness 77-year-old female history of chronic pain subarachnoid hemorrhage admitted 4 days ago with upper abdominal pain nonradiating without fever chills hematemesis hematochezia or melena. Intermittent nausea with a few nonbloody emesis. History of cholecystectomy late /gallstones and occasional alcohol consumption. Drinks 2-3 beers every 2 weeks nothing heavy no history of alcoholism. Last drink of alcohol more than a week ago. Consult requested for pancreatitis. No history of pancreatitis. Denies symptoms of dyspepsia reflux prior to onset of pain. No history of peptic ulcer disease. No changes in medications. Admission hemoglobin 13.9. White count 14.4. Lipase greater than 20,000. Amylase 2911. LFTs within normal limits. Troponin less than 0.012. Triglycerides 97. IgG subclass 1-4 unremarkable. Lipase yesterday improved 464. Amylase 123. LFTs remain within normal limits. T-max 100.3. CT with IV contrast 2.5 cm hepatic lesion compatible with simple cyst. Small amount of fluid surrounding the pancreatic head and left paracolic gutter ill-definition of peripancreatic fat. Review of Systems Constitutional: Denies fever, chills, sweats, weight gain, or loss. HEENT: Negative for migraines, blurred vision or loss, earaches, drainage, tinnitus, oral mucosal lesions, dysphagia, or odynophagia. CARDIAC: Negative for chest pain, arrhythmias, or palpitation. RESPIRATORY: Negative for shortness of breath, hemoptysis, cough, or sputum production. GI: See HPI for pertinent findings. : Negative for hematuria, urgency, frequency, polyuria, or dysuria. GYNc: Negative vaginal discharge. MUSCULOSKELETAL: History chronic pain. NEUROLOGIC: Negative for stroke or TIA. ENDOCRINE: Negative for thyroid problems. SKIN: Negative for rash or itching. PSYCHIATRIC: Negative history for depression and anxiety Past Medical History Additional Past Medical History / Comment(s): Chronic pain, subarachnoid hemorrhage History of Any Multi-Drug Resistant Organisms: None Reported Past Surgical History: Cholecystectomy Additional Past Surgical History / Comment(s): Hemorrhoidectomy, ovarian cyst, colonoscopy Past Anesthesia/Blood Transfusion Reactions: No Reported Reaction Past Psychological History: No Psychological Hx Reported Smoking Status: Never smoker Past Alcohol Use History: Occasional Additional Past Alcohol Use History / Comment(s): Has 2-3 beers weekly and one mixed drink. Past Drug Use History: None Reported - Past Family History Mother Additional Family Medical History / Comment(s): Mother from old age grandmother Additional Family Medical History / Comment(s): Stomach cancer at age 72 Medications and Allergies Home Medications Medication Instructions Recorded Confirmed Type Diclofenac Sodium [Voltaren] 75 mg PO BID PRN 10/21/17 10/21/17 History Allergies Allergy/AdvReac Type Severity Reaction Status Date / Time codeine AdvReac Abdominal Verified 10/21/17 11:04 Pain Physical Exam Vitals: Vital Signs Temp Pulse Resp BP Pulse Ox 10/23/17 23:00 99.3 F 86 17 148/73 95 10/23/17 14:50 99.0 F 80 18 136/67 95 10/23/17 08:00 16 Intake and Output 10/23/17 10/24/17 10/24/17 22:59 06:59 14:59 Other: Voiding Method Toilet Toilet # Voids 2 1 General appearance: The patient is alert, oriented, in no acute distress. HET: Head is normocephalic and atraumatic. Pupils are equal and reactive. Oropharynx is clear without lesions. Neck: Supple without lymphadenopathy. Trachea midline. Heart: S1 S2. Regular rate and rhythm. Lungs: No crackles or wheezes are heard. Abdomen: Soft, nontender, nondistended with bowel sounds. No peritoneal signs. No palpable organomegaly or masses. Extremities: Normal skin color and turgor. No cyanosis, rash, ulceration, clubbing, or edema. Radial and pedal pulses are 2/4 bilaterally. Neurological: No focal deficits. Strength and sensation are grossly intact. Results CBC & Chem 7: 10/24/17 07:38 10/24/17 07:38 Labs: Abnormal Lab Results - Last 24 Hours (Table) 10/23/17 10/23/17 Range/Units 08:06 08:06 RBC 3.73 L (3.80-5.40) m/uL Hgb 11.2 L (11.4-16.0) gm/dL Neutrophils # 7.8 H (1.3-7.7) k/uL Glucose 64 L (74-99) mg/dL Amylase 123 H (30-110) U/L Lipase 464 H (23-300) U/L CT scan - abdomen: report reviewed (Dr. Sun) Assessment and Plan (1) Acute pancreatitis Narrative/Plan: Idiopathic. Etiology unclear possible passage of microlithiasis with gross elevation of lipase on admission with marked improvement within 24 hours doubt alcohol component patient drinks a few beers every 2-3 weeks. No clear indication to suggest autoimmune disease IgG panel unremarkable. Peptic ulcer disease low within the differential considering patient had no symptoms of indigestion GI bleed GERD prior to onset of pain. Current Visit: Yes Status: Acute Code(s): K85.90 - ACUTE PANCREATITIS WITHOUT NECROSIS OR INFECTION, UNSP SNOMED Code(s): 294154918 Plan: 1. Continue GI prophylaxis Protonix 40 mg daily. Patient's pain is improved greatly. 2. Low-fat diet. Return office 10-14 days for reevaluation we'll obtain a CA- 19-9 and SHANDRA marker. 3. Discharge per medicine. Thank you for this kind referral and the opportunity to participate in the care of your patient. This consultation was discussed with Dr. Sun. The impression and plan of care have been directed as dictated.
[2017-10-24 10:13] LABS: Amylase 88 U/L (30-110); Lipase 396 U/L (23-300)
--- NOTE | 2017-10-24 13:47 | P.PN ---
Subjective Progress Note Date: 10/24/17 Principal diagnosis: Patient seen in follow-up for acute pancreatitis Patient is seen and examined today, patient is tolerating liquid diet, continues to have some epigastric abdominal pain well controlled with [place] denies any nausea or vomiting. Denies any chest pain or trouble breathing. Reports some constipation Objective - Vital Signs Vital signs: Vital Signs Temp 99.0 F 10/24/17 06:50 Pulse 71 10/24/17 06:50 Resp 16 10/24/17 06:50 BP 122/62 10/24/17 06:50 Pulse Ox 93 L 10/24/17 06:50 Intake & Output 10/23/17 10/24/17 10/24/17 18:59 06:59 18:59 Intake Total 290 Balance 290 Weight 59.5 kg Intake: Oral 290 Other: Voiding Method Toilet Toilet # Voids 1 1 - Exam Constitutional: vital signs stable, Not in acute distress, pleasant, conversant Lungs: Clear to auscultation bilaterally, clear to percussion, normal respiratory effort Cardiovascular: Regular rate and rhythm, no murmurs, no gallops, no rubs, no peripheral edema Gastrointestinal: Soft, positive tenderness to palpation over the epigastric region with gentle percussion and deep palpation, no rebound tenderness, bowel sounds positive Extremities: No digital cyanosis or clubbing, peripheral pulses palpable and equal , no calf muscle tenderness Psych: Alert, oriented to place, person and time, appropriate affect, intact judgment - Labs CBC & Chem 7: 10/24/17 07:38 10/24/17 07:38 Labs: Abnormal Lab Results - Last 24 Hours (Table) 10/24/17 10/24/17 10/24/17 Range/Units 07:38 07:38 07:38 RBC 3.27 L (3.80-5.40) m/uL Hgb 10.0 L (11.4-16.0) gm/dL Hct 30.6 L (34.0-46.0) % Glucose 69 L (74-99) mg/dL Calcium 8.1 L (8.4-10.2) mg/dL Lipase 396 H (23-300) U/L Assessment and Plan Assessment: 77-year-old female with history of cholecystectomy, no history of pancreatitis. Presented with abdominal pain found to have acute pancreatitis, there is no clear cause for pancreatitis except for suspected alcohol which patient denies any heavy alcohol intake or any regular alcohol intake. Plan: # Acute pancreatitis unclear cause, possibly related to her alcohol intake, which she claims to be occasional , however this episode has happened after drinking alcohol continues to have epigastric pain , no nausea or vomiting Tolerating by mouth intake with liquids Pain controlled with by mouth pain meds labs improving Status post cholecystectomy, surgery consulted--gallstones unlikely GI consultation for further input regarding causes of her acute pancreatitis attack , recommending outpatient follow-up and workup #. Mild anemia could be dilutional component with iv fluids no evidence of GI bleeding at this time continue to monitor GI following #Recent fall fall precaution PT eval #DVT prophylaxis Lovenox Patient continues to have epigastric tenderness with gentle palpation, she is requiring by mouth [place] every 4-5 hours. She is tolerating liquid diet. I think patient will benefit from one more day with IV fluid hydration Advance diet to regular in the morning Possible discharge tomorrow
[2017-10-25] MEDS: LACTATED RINGERS 1,000 ML IV SCH ×4 (01:04→20:50)
[2017-10-25] MEDS: HYDROcodone/APAP 5-325MG 1 EACH TAB PO PRN ×3 (05:32→20:47)
[2017-10-25] MEDS: ENOXAPARIN 40 MG/0.4 ML SYRINGE SQ SCH (07:36)
[2017-10-25] MEDS: FAMOTIDINE 20 MG TAB PO SCH (08:11)
[2017-10-25 08:44] LABS: Basophils % (A) 0 %; Eosinophils # (A) 0.3 k/uL (0-0.7); Eosinophils % (A) 3 %; HCT 35.3 % (34.0-46.0); HGB 11.5 gm/dL (11.4-16.0); Lymphocytes # (A) 0.9 k/uL (1.0-4.8); Lymphocytes % (A) 11 %; MCH 30.9 pg (25.0-35.0); MCHC 32.7 g/dL (31.0-37.0); MCV 94.6 fL (80.0-100.0); Mean Platelet Volume 7.5; Monocytes # (A) 0.3 k/uL (0-1.0); Monocytes % (A) 4 %; Neutrophils # (A) 6.6 k/uL (1.3-7.7); Neutrophils % (A) 80 %; Platelet Count 220 k/uL (150-450); RBC 3.74 m/uL (3.80-5.40); RDW 12.3 % (11.5-15.5); WBC 8.3 k/uL (3.8-10.6)
[2017-10-25] MEDS: PANTOPRAZOLE 40 MG TABLET PO SCH (08:47)
--- NOTE | 2017-10-25 09:47 | P.PN ---
Subjective Progress Note Date: 10/25/17 Principal diagnosis: pancreatitis Reports increased epigastric pain last night. Decreased appetite this morning ate a few bites of scrambled eggs and hash browns. Hemoglobin yesterday decreased to 10 presently 11.5. Denies hematemesis hematochezia melena. Afebrile. SHANDRA negative. CA-19-9 13. Objective - Vital Signs Vital signs: Vital Signs Temp 99.9 F H 10/25/17 05:35 Pulse 84 10/25/17 05:35 Resp 17 10/25/17 05:35 BP 168/76 10/25/17 05:35 Pulse Ox 92 L 10/25/17 05:35 Intake & Output 10/24/17 10/25/17 10/25/17 18:59 06:59 18:59 Intake Total 690 1200 Balance 690 1200 Intake: IV 400 1200 Lactated Ringers 1,000 ml 400 1200 @ 150 mls/hr IV .[id number] [facility]ANS[facility] Rx#:[id number] Oral 290 Other: # Voids 2 2 - Exam General appearance: The patient is alert, oriented, in no acute distress. HET: Head is normocephalic and atraumatic. Pupils are equal and reactive. Oropharynx is clear without lesions. Neck: Supple without lymphadenopathy. Trachea midline. Heart: S1 S2. Regular rate and rhythm. Lungs: No crackles or wheezes are heard. Abdomen: Soft, epigastric tenderness, nondistended with bowel sounds. No peritoneal signs. No palpable organomegaly or masses. Extremities: Normal skin color and turgor. No cyanosis, rash, ulceration, clubbing, or edema. Radial and pedal pulses are 2/4 bilaterally. Neurological: No focal deficits. Strength and sensation are grossly intact. - Labs CBC & Chem 7: 10/25/17 08:22 10/24/17 07:38 Labs: Abnormal Lab Results - Last 24 Hours (Table) 10/24/17 10/25/17 Range/Units 07:38 08:22 RBC 3.74 L (3.80-5.40) m/uL Lymphocytes # 0.9 L (1.0-4.8) k/uL Lipase 396 H (23-300) U/L Assessment and Plan (1) Acute pancreatitis Narrative/Plan: Idiopathic. Etiology unclear possible passage of microlithiasis with gross elevation of lipase on admission with marked improvement within 24 hours doubt alcohol component patient drinks a few beers every 2-3 weeks. No clear indication to suggest autoimmune disease IgG panel SHANDRA unremarkable. Peptic ulcer disease low within the differential considering patient had no symptoms of indigestion GI bleed GERD prior to onset of pain. Current Visit: Yes Status: Acute Code(s): K85.90 - ACUTE PANCREATITIS WITHOUT NECROSIS OR INFECTION, UNSP SNOMED Code(s): 199792866 Plan: 1. Increased epigastric pain as night. Hemoglobin has improved from yesterday however would like to confidently rule out peptic ulcer disease as a cause of her pancreatitis before discharge therefore will proceed with EGD evaluation this afternoon secondary to patient having a very small breakfast this morning and needs to be nothing by mouth at least 6 hours. 2. Protonix 40 mg daily. Discontinue Lovenox and Toradol. The senior systems administrator has discussed the risks, benefits and alternative therapies for the above-mentioned procedure and for both sedation/analgesia as well as necessary blood product administration, if indicated, as they pertain to this patient. The patient has indicated understanding and acceptance of the risks and procedures discussed. Assessment and plan a care discussed with Dr. Sun
--- NOTE | 2017-10-25 10:20 | P.PN ---
Subjective Progress Note Date: 10/25/17 Principal diagnosis: Pancreatitis and abdominal pain Patient continues to have abdominal pain today. No nausea no vomiting. Had breakfast today with no increased pain or nausea. Objective - Vital Signs Vital signs: Vital Signs Temp 99.9 F H 10/25/17 05:35 Pulse 84 10/25/17 05:35 Resp 17 10/25/17 05:35 BP 168/76 10/25/17 05:35 Pulse Ox 92 L 10/25/17 05:35 Intake & Output 10/24/17 10/25/17 10/25/17 18:59 06:59 18:59 Intake Total 690 1200 Balance 690 1200 Intake: IV 400 1200 Lactated Ringers 1,000 ml 400 1200 @ 150 mls/hr IV .Q6H40M FRANSICO Rx#:[id number] Oral 290 Other: # Voids 2 2 - Exam gen:alert and oriented lungs:clear to auscultation heart:s1s2 abdomen:soft and depressible, tenderness to palpation epigastric area ext:no edema - Labs CBC & Chem 7: 10/25/17 08:22 10/24/17 07:38 Labs: Abnormal Lab Results - Last 24 Hours (Table) 10/25/17 Range/Units 08:22 RBC 3.74 L (3.80-5.40) m/uL Lymphocytes # 0.9 L (1.0-4.8) k/uL Assessment and Plan (1) Acute pancreatitis Narrative/Plan: Patient did have increasing pain last night But no pain with food earlier today. Cause of pancreatitis is unclear at this point Current Visit: Yes Status: Acute Code(s): K85.90 - ACUTE PANCREATITIS WITHOUT NECROSIS OR INFECTION, UNSP SNOMED Code(s): 721400594 (2) Abdominal pain Narrative/Plan: Secondary to increased pain plans for EGD today by gastroenterology to rule out any other causes including ulcer Current Visit: Yes Status: Acute Code(s): R10.9 - UNSPECIFIED ABDOMINAL PAIN SNOMED Code(s): 21666051 (3) Anemia Current Visit: Yes Status: Acute Code(s): D64.9 - ANEMIA, UNSPECIFIED SNOMED Code(s): 760338326 Plan: Discharge plans on hold for now until EGD results are obtained
[2017-10-25] MEDS ORDERED: IV FLUID CONTINUATION 1,000 ML IV ONE (15:52)
[2017-10-25] MEDS ORDERED: PROPOFOL 10 MG/ML 20 ML VIAL IV ONE (15:54)
[2017-10-25] MEDS ORDERED: LIDOCAINE 1% INJ 10MG/ML (20 ML MDV) ONE (15:54)
--- NOTE | 2017-10-25 16:25 | P.PCN ---
Date of Procedure: 10/25/17 Procedure(s) Performed: Procedure: Esophagogastroduodenoscopy and biopsy. Preoperative diagnosis: Unexplained pancreatitis, rule out peptic ulcer disease. Postoperative diagnosis: 1. Small sliding hiatal hernia with no obvious esophagitis or complicated reflux disease. 2. Mild gastritis with no ulcers or gastric outlet obstruction or bleeding. 3. Biopsies obtained from the antrum. Preparation and sedation: Was provided by anesthesia. Brief clinical history: The patient is a 77-year-old female who was admitted to the hospital with acute pancreatitis. She reported increased epigastric pain last night. Decreased appetite. Hemoglobin yesterday decreased to 10 presently 11.5. Denies hematemesis, hematochezia or melena. Afebrile. SHANDRA negative. CA-19-9 13. No other obvious explanation for pancreatitis. This evaluation is to assess for peptic ulcer disease. The details are summarized in the history and physical and dictated consultation and progress notes. Procedure: With the patient on her left lateral decubitus position and after informed consent and adequate sedation, I passed the Olympus-GIF 160 video upper endoscope through the cricopharyngeus down the esophagus. GE junction was around 36 cm from the incisors and there was a small sliding hiatal hernia but no obvious esophagitis or complicated reflux disease. The endoscope was then passed into the stomach which was insufflated with air and inspected in detail including the retroflex view in the cardia. There was some mottling and erythema in the antrum but no ulcers or erosions. Pyloric channel, duodenal bulb, post bulbar area and descending duodenum appeared within normal limits without any ulcers or bleeding. I obtained biopsies from the antrum then the endoscope was withdrawn. The patient tolerated the procedure well. Plan: The patient was reassured. Will allow clear liquid diet and monitor her course closely further plans based on her course and biopsy results.
[2017-10-26] MEDS: HYDROcodone/APAP 5-325MG 1 EACH TAB PO PRN ×2 (03:55→10:25)
[2017-10-26] MEDS: LACTATED RINGERS 1,000 ML IV SCH ×2 (03:56→10:28)
[2017-10-26 06:00] VITALS: BP 131/61; PULSE 69; RESP 17; TEMP 98.9
[2017-10-26] MEDS: PANTOPRAZOLE 40 MG TABLET PO SCH (08:10)
[2017-10-26 08:27] LABS: HCT 33.4 % (34.0-46.0); HGB 10.6 gm/dL (11.4-16.0); MCH 30.3 pg (25.0-35.0); MCHC 31.7 g/dL (31.0-37.0); MCV 95.5 fL (80.0-100.0); Mean Platelet Volume 7.6; Platelet Count 206 k/uL (150-450); RDW 12.5 % (11.5-15.5); WBC 8.2 k/uL (3.8-10.6)
[2017-10-26 08:47] LABS: ALT 36 U/L (9-52); AST 25 U/L (14-36); Albumin 2.9 g/dL (3.5-5.0); Alkaline Phosphatase 68 U/L (38-126); Anion Gap 12 mmol/L; Blood Urea Nitrogen 5 mg/dL (7-17); Calcium 8.4 mg/dL (8.4-10.2); Carbon Dioxide 27 mmol/L (22-30); Chloride 99 mmol/L (98-107); Glucose 84 mg/dL (74-99); Lipase 308 U/L (23-300); Potassium 3.9 mmol/L (3.5-5.1); Sodium 138 mmol/L (137-145); Total Bilirubin 0.4 mg/dL (0.2-1.3); Total Protein 5.1 g/dL (6.3-8.2)
--- NOTE | 2017-10-26 09:27 | P.PN ---
Subjective Progress Note Date: 10/26/17 Principal diagnosis: pancreatitis Status post EGD yesterday no evidence of peptic ulcer disease. Lipase 300 range. Feels better. Still reports some mild midepigastric upper abdominal pain. Afebrile. Anticipating discharge. Tolerating diet. Objective - Vital Signs Vital signs: Vital Signs Temp 98.9 F 10/26/17 05:38 Pulse 69 10/26/17 05:38 Resp 17 10/26/17 05:38 BP 131/61 10/26/17 05:38 Pulse Ox 94 L 10/26/17 05:38 Intake & Output 10/25/17 10/26/17 10/26/17 18:59 06:59 18:59 Intake Total 1400 Balance 1400 Weight 59.5 kg Intake: IV 200 Oral 1200 Other: # Voids 1 1 - Exam General appearance: The patient is alert, oriented, in no acute distress. HET: Head is normocephalic and atraumatic. Pupils are equal and reactive. Oropharynx is clear without lesions. Neck: Supple without lymphadenopathy. Trachea midline. Heart: S1 S2. Regular rate and rhythm. Lungs: No crackles or wheezes are heard. Abdomen: Soft, epigastric tenderness, nondistended with bowel sounds. No peritoneal signs. No palpable organomegaly or masses. Extremities: Normal skin color and turgor. No cyanosis, rash, ulceration, clubbing, or edema. Radial and pedal pulses are 2/4 bilaterally. Neurological: No focal deficits. Strength and sensation are grossly intact. - Labs CBC & Chem 7: 10/26/17 07:53 10/26/17 07:53 Labs: Abnormal Lab Results - Last 24 Hours (Table) 10/26/17 10/26/17 Range/Units 07:53 07:53 RBC 3.50 L (3.80-5.40) m/uL Hgb 10.6 L (11.4-16.0) gm/dL Hct 33.4 L (34.0-46.0) % BUN 5 L (7-17) mg/dL Total Protein 5.1 L (6.3-8.2) g/dL Albumin 2.9 L (3.5-5.0) g/dL Lipase 308 H (23-300) U/L Assessment and Plan (1) Acute pancreatitis Narrative/Plan: Etiology unclear no evidence of peptic ulcer disease per EGD yesterday. Possible passage of microlithiasis possible alcohol component. Current Visit: Yes Status: Acute Code(s): K85.90 - ACUTE PANCREATITIS WITHOUT NECROSIS OR INFECTION, UNSP SNOMED Code(s): 042189382 Plan: 1. Agreeable for discharge. RTO after discharge. Alcohol abstinence was advised. Assessment and plan a care discussed with Dr. Sun
--- NOTE | 2017-10-26 12:34 | P.DS ---
Providers Date of admission: 10/20/17 19:16 Attending physician: Fay Paulino DO Consults: 10/21/17 13:45 Consult Physician Routine Consulting Provider: Mihaela Chino Consult Reason/Comments: abd pain Do you want consulting provider notified?: Yes Primary care physician: John Tovar - Discharge Diagnosis(es) (1) Acute pancreatitis Current Visit: Yes Status: Acute (2) Gastritis Current Visit: Yes Status: Acute (3) Elevated BP without diagnosis of hypertension Current Visit: Yes Status: Acute (4) Anemia Current Visit: Yes Status: Acute Hospital Course: The patient is a 77-year-old female with a history of chronic pain and was taking oral NSAIDs with Voltaren was admitted with acute pancreatitis after presenting with mid epigastric abdominal pain and a serum lipase level of 1237, she was made nothing by mouth started on IV fluids and treated supportively with IV narcotics and Zofran. The patient's pancreatitis was idiopathic as her workup was negative as the patient had previously had cholecystectomy, had no history of binge drinking or significant alcohol use and triglycerides were 97. In GI was consulted and the patient was seen by Dr. Sun, workup with IG panel showed no clear indication for an autoimmune etiology of her pancreatitis, As a patient continued to have have epigastric pain with food along with a drop in her hemoglobin. The patient underwent an EGD that showed only mild gastritis likely due to NSAID use without any acute GI bleed, it was thought that the drop in hemoglobin was due to hemodilution. The patient's diet was gradually advanced as her symptoms resolved and she was able to tolerate a bland diet and liquids at time of discharge. She was subsequently discharged home in stable condition with plans to follow-up in Dr. Sun GI clinic in 2-3 weeks. This discharge process took approximately 35 minutes. New prescriptions at discharge Protonix 40 mg PO daily. Patient Condition at Discharge: Good Plan - Discharge Summary Discharge Rx Participant: No New Discharge Prescriptions: New Pantoprazole [Protonix] 40 mg PO AC-BRKFST #30 tablet. Discontinued Diclofenac Sodium [Voltaren] 75 mg PO BID PRN PRN Reason: Pain Discharge Medication List Pantoprazole [Protonix] 40 mg PO AC-BRKFST #30 tablet. 10/26/17 [Rx] Follow up Appointment(s)/Referral(s): Jay Sun MD [STAFF PHYSICIAN] - 11/13/17 5:00 pm John Tovar MD [Primary Care Provider] - 1-2 days Patient Instructions/Handouts: Pancreatitis (DC) Discharge Disposition: HOME SELF-CARE
== END 2017-10-26 13:54 | disposition home or self-care (01) | DRG 440 ==
LOC: EC 15:23 → 4MS4W 19:16
PROVIDERS: ADMIT Internal Medicine; ATTEND Internal Medicine
PROC: 0DB78ZX Excision of Stomach, Pylorus, Via Natural or Artificial Opening Endoscopic, Diagnostic (ICD-10-PCS; principal; 2017-10-25 07:30)
DX: K85.90 Acute pancreatitis without necrosis or infection, unspecified (principal); K59.09 Other constipation; R35.0 Frequency of micturition; E86.0 Dehydration; K44.9 Diaphragmatic hernia without obstruction or gangrene; R03.0 Elevated blood-pressure reading, without diagnosis of hypertension; G89.29 Other chronic pain; K29.70 Gastritis, unspecified, without bleeding; D64.9 Anemia, unspecified; T39.395A Adverse effect of other nonsteroidal anti-inflammatory drugs [NSAID], initial encounter; Z87.11 Personal history of peptic ulcer disease; Z79.1 Long term (current) use of non-steroidal anti-inflammatories (NSAID); Z88.6 Allergy status to analgesic agent; Z79.899 Other long term (current) drug therapy; Z90.49 Acquired absence of other specified parts of digestive tract; Z87.19 Personal history of other diseases of the digestive system; Z80.0 Family history of malignant neoplasm of digestive organs
CPT/HCPCS: 36415; 43239; 74018; 74177; 80048; 80053; 80061; 81001; 82150; 82787; 83605; 83690; 83735; 84100; 84145; 84484; 85025; 85027; 86038; 86301; 96361; 96374; 96375; 99285

== ENCOUNTER → 2019-05-06 | Outpatient (CLI) | payer MEDICARE, OTHER ==
--- NOTE | 2019-05-06 15:49 | US ---
EXAMINATION TYPE: US pelvic complete DATE OF EXAM: 05/06/2019 COMPARISON: NONE CLINICAL HISTORY: UTEINE PROLAPSE, N81.2. pre prolapse surgery testing, one ovary removed previously but patient unsure which TECHNIQUE: TA. Transabdominal sonographic images of the pelvis were acquired. Date of LMP: 30+yrs ago EXAM MEASUREMENTS: Uterus: 5.5 x 3.2 x 1.9 cm Endometrial Stripe: not seen Right Ovary: not seen Left Ovary: not seen 1. Uterus: Anteverted multiple vascular calcifications seen around periphery 2. Endometrium: not discernable due to small caliber and shadowing from peripheral vessels 3. Right Ovary: not seen due to atrophy or removal 4. Left Ovary: not seen due to atrophy or removal 5. Bilateral Adnexa: wnl 6. Posterior cul-de-sac: wnl IMPRESSION: 1. Multiple uterine calcifications noted likely related to calcified leiomyomas.
== END | disposition home or self-care (01) ==
LOC: RADUSWWP 11:04
PROVIDERS: ATTEND Obstetrics & Gynecology
DX: N85.8 Other specified noninflammatory disorders of uterus (principal)
CPT/HCPCS: 76856

== ENCOUNTER 2020-02-26 05:41 | Day surgery (SDC) | payer MEDICARE, OTHER ==
[2020-02-19 10:23] VITALS: BMI 23.3
--- NOTE | 2020-02-25 16:43 | P.HPOB ---
History of Present Illness H&P Date: 02/25/20 Chief Complaint: Uterine prolapse with cystocele & rectocele This is a 79 y.o. female, 5, para 5, who presents for total vaginal hysterectomy with anterior and posterior vaginal repair due to uterovaginal prolapse. She did try a pessary, but did not like it. She would like definitive surgical treatment. She complains of urinary frequency, mostly at night. She feels a bulge and occasionally has urinary incontinence and constipation. Pelvic ultrasound showed uterus measuring 5.5 x 3.2 x 1.9 cm and endometrial stripe was not well-visualized. Neither ovary was visible. She has been evaluated by Dr. Mendoza and he doesn't feel she needs a sling. She did hav e cardiac clearance from Dr. Villalobos. OB Hx: . History of 5 vaginal deliveries. 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 Social Hx: . Retired. No current partner. Review of Systems Constitutional: Denies chills, Denies fever Eyes: denies blurred vision, denies pain Ears, nose, mouth and throat: Denies headache, Denies sore throat Cardiovascular: Denies chest pain, Denies shortness of breath Respiratory: Denies cough Gastrointestinal: Reports abdominal pain (occasional), Reports constipation Genitourinary: Reports stress incontinence, Reports urinary frequency, Reports vaginal itching Menstruation: Reports postmenopausal Musculoskeletal: Reports low back pain, Reports myalgias Integumentary: Denies pruritus, Denies rash Neurological: Reports memory loss, Denies numbness, Denies weakness Psychiatric: Denies anxiety, Denies depression Hematologic/Lymphatic: Reports easy bruising Past Medical History Additional Past Medical History / Comment(s): Hx Subarachnoid hemorrhage 1971. Leaky heart valve. Left hand carpal tunnel, having surgery 02/20/20. Dizziness from Vertigo recently. Hx Pancreatitis. History of Any Multi-Drug Resistant Organisms: None Reported Past Surgical History: Appendectomy, Cholecystectomy, Tubal Ligation Additional Past Surgical History / Comment(s): Hemorrhoidectomy, R. salpingectomy & R. ovarian cystectomy, colonoscopy. Past Anesthesia/Blood Transfusion Reactions: No Reported Reaction Past Psychological History: No Psychological Hx Reported Smoking Status: Never smoker Past Alcohol Use History: Occasional Past Drug Use History: None Reported - Past Family History Mother Additional Family Medical History / Comment(s): Mother from old age. grandmother Additional Family Medical History / Comment(s): Stomach cancer at age 72. Medications and Allergies Home Medications Medication Instructions Recorded Confirmed Type Glucosamine/Chondr Jules A Sod [Osteo 1 each PO DAILY 02/19/20 02/19/20 History Bi-Flex Caplet] Magnesium 500 mg PO DAILY 02/19/20 02/19/20 History Wheat Dextrin [Benefiber] 1 each PO DAILY 02/19/20 02/19/20 History Allergies Allergy/AdvReac Type Severity Reaction Status Date / Time codeine AdvReac Abdominal Verified 02/19/20 09:58 Pain Exam Osteopathic Statement: *. No significant issues noted on an osteopathic structural exam other than those noted in the History and Physical/Consult. HEENT: within normal limits Heart: regular rate and rhythm Lungs: clear to auscultation bilaterally Abdomen: soft, non-tender Pelvic: uterus small, anteverted, non-tender with 2nd degree uterine prolapse. No adnexal masses are palpated. Grade 3 cystocele and grade 2 rectocele are noted. Extremities: Neg. Jasper's Results Result Diagrams: 02/26/20 06:37 Assessment and Plan (1) Cystocele and rectocele with incomplete uterovaginal prolapse Current Visit: No Status: Acute Code(s): N81.2 - INCOMPLETE UTEROVAGINAL PROLAPSE SNOMED Code(s): 249976406 Plan: Proceed with total vaginal hysterectomy with anterior and posterior vaginal repair. I have discussed the risks, benefits, and alternative therapies for the above- mentioned procedure and for both sedation/anesthesia as well as necessary blood products administration, if indicated, as they pertain to this patient. The patient has indicated her understanding and acceptance of the risks and procedures discussed.
[2020-02-26] MEDS ORDERED: DEXAMETHASONE SOD PHOSPHATE 10 MG/ML 1 ML VIAL IV ONE (05:46)
[2020-02-26] MEDS ORDERED: ONDANSETRON 4 MG/2 ML VIAL IVP ONE (05:46)
[2020-02-26] MEDS ORDERED: HYDROmorphone 0.5 MG/0.5 ML SYRINGE IVP PRN (05:46)
[2020-02-26] MEDS: LACTATED RINGERS 1,000 ML IV SCH (06:38)
[2020-02-26 06:59] LABS: Basophils # (A) 0.1 k/uL (0-0.2); Basophils % (A) 1 %; Eosinophils # (A) 0.4 k/uL (0-0.7); Eosinophils % (A) 6 %; HCT 42.2 % (34.0-46.0); HGB 13.6 gm/dL (11.4-16.0); Lymphocytes # (A) 1.7 k/uL (1.0-4.8); Lymphocytes % (A) 26 %; MCHC 32.3 g/dL (31.0-37.0); Monocytes # (A) 0.4 k/uL (0-1.0); Monocytes % (A) 6 %; Neutrophils # (A) 3.8 k/uL (1.3-7.7); Neutrophils % (A) 59 %; Platelet Count 206 k/uL (150-450); RBC 4.54 m/uL (3.80-5.40); RDW 12.4 % (11.5-15.5); WBC 6.5 k/uL (3.8-10.6)
[2020-02-26] MEDS ORDERED: diphenhydrAMINE 50 MG/ML 1 ML VIAL IVP PRN ×2 (07:05→09:05)
[2020-02-26] MEDS ORDERED: MORPHINE SULFATE 2 MG/ML SYRINGE IVP PRN (07:05)
[2020-02-26] MEDS ORDERED: NALOXONE 0.4 MG/ML 1 ML VIAL IV PRN (07:05)
--- NOTE | 2020-02-26 07:09 | P.ANPRN ---
Procedure Note - Anesthesia - Epidural/Spinal Spinal Time Out Performed: Yes Date of Procedure: 02/26/20 Procedure Start Time: 06:52 Procedure Stop Time: 06:57 Location of Patient: PreOp Indication: Acute Post-Operative Pain, Requested by Surgeon Sedation Type: Awake Preparation: Sterile Prep Position: Sitting Needle Guage: 25 Narrative: Injected duramorph 150 mcg plus fentanyl 25 mcg intrathecally
[2020-02-26] MEDS ORDERED: fentaNYL (PF) 50 MCG/ML 2 ML AMP ONE (07:29)
[2020-02-26] MEDS ORDERED: ROCURONIUM BROMIDE 10 MG/ML 5 ML VIAL IV ONE (07:29)
[2020-02-26] MEDS ORDERED: SUCCINYLCHOLINE CHLORIDE 100 MG/5 ML SYR IV ONE (07:29)
[2020-02-26] MEDS ORDERED: LIDOCAINE 1% INJ 10MG/ML (20 ML MDV) ONE (07:29)
[2020-02-26] MEDS ORDERED: MORPHINE SULFATE (PF) 0.3 MG/0.3 ML SYR ONE (07:29)
[2020-02-26] MEDS ORDERED: GLYCOPYRROLATE 0.2 MG/ML 2 ML VIAL ONE (07:29)
[2020-02-26] MEDS ORDERED: NEOSTIGMINE 1 MG/ML 10 ML VIAL ONE (07:29)
[2020-02-26] MEDS ORDERED: PROPOFOL 10 MG/ML 20 ML VIAL IV ONE (07:29)
[2020-02-26] MEDS ORDERED: EPINEPHrine 1 MG/ML 1 ML AMP IV ONE (08:00)
[2020-02-26] MEDS ORDERED: EPINEPHrine 1 MG/ML 1 ML AMP SQ ONE (08:00)
[2020-02-26] MEDS ORDERED: BACITRACIN ZINC 500 UNIT/GM OINT 28.4 GM TUBE TOPICAL ONE (08:06)
--- NOTE | 2020-02-26 09:03 | P.OP ---
Date of Procedure: 02/26/20 Preoperative Diagnosis: Uterine prolapse with cystocele and rectocele Postoperative Diagnosis: Same Procedure(s) Performed: Total vaginal hysterectomy with anterior and posterior vaginal colporrhaphy Anesthesia: GETA, spinal (Duramorp) Surgeon: Jessie Serrano Basic Sciences Professor #1: Olive Simmons Estimated Blood Loss (ml): 50 Pathology: other (Uterus with cervix, vaginal mucosa) Condition: stable Disposition: floor Indications for Procedure: This is a 79 y.o. female, 5, para 5, who presents for total vaginal hysterectomy with anterior and posterior vaginal repair due to uterovaginal prolapse. She did try a pessary, but did not like it. She would like definitive surgical treatment. She complains of urinary frequency, mostly at night. She feels a bulge and occasionally has urinary incontinence and constipation. Pelvic ultrasound showed uterus measuring 5.5 x 3.2 x 1.9 cm and endometrial stripe was not well-visualized. Neither ovary was visible. She has been evaluated by Dr. Mendoza and he doesn't feel she needs a sling. She did have cardiac clearance from Dr. Villalobos. Operative Findings: Uterus has grade 2-3 prolapse. There is a grade 3 cystocele and a grade 2 rectocele. Vaginal mucosa is atrophic. Neither ovary is visualized. No adnexal masses are palpated. Description of Procedure: The patient is taken the operating room where she is placed in the dorsal lithotomy position. She is prepped and draped in the normal sterile fashion. Next a weighted speculum was placed in the patient's vagina and a right angle retractor was used to visualize the cervix. The anterior lip of the cervix is grasped with a single-tooth tenaculum. Next the cervix was circumferentially injected with one amp of epinephrine to 150 mL of normal saline. Next the cervix was circumscribed with a scalpel. The vaginal mucosa was pushed away from the cervix with a sponge. Next the uterosacral ligaments are clamped on either side with a Parisa clamp, cut with Umana scissors, and then sutured with 0 Vicryl suture in a Parisa transfixion stitch and then held on either side with a straight hemostat. Next the posterior peritoneal reflection was identified and entered sharply with Umana scissors. The edges of the vaginal mucosa was then tagged with 0 Vicryl suture and held with a curved hemostat for identification. Next a longbilled weighted speculum was placed through the posterior peritoneal reflection. Next the cardinal ligaments were clamped on either side with Parisa clamps, cut with Umana scissors, and then sutured with 0 Vicryl suture in Parisa transfixion stitches and cut. Next the vesicouterine peritoneum reflection is identified and entered sharply with Metzenbaum scissors. A right angle bladder retractor is then used to retract the bladder. The uterine arteries are clamped on either side with Parisa clamps, cut with Umana scissors, and then sutured with 0 Vicryl suture in Parisa transfixion stitches. The round ligament is also clamped on either side with a Parisa clamp, cut with Umana scissors, and sutured with 0 Vicryl suture in Parisa transfixion stitches. Next the uterine ovarian ligament and tube were clamped on either side with a Parisa clamp, cut with Umana scissors, and then sutured with 0 Vicryl suture in a [id number] stitch, flashed, and then free tied with another suture of 0 Vicryl suture. These pedicles were held with a straight Gama for identification. The uterus is removed from the field. Excellent hemostasis is noted. Next the peritoneum is closed with 0 Vicryl suture in a pursestring fashion incorporating all the held ligaments. Again neither ovary was visualized prior to closing the vaginal cuff area. Next the uterine ovarian ligaments are tied together in the middle and cut. Next attention was turned to the cystocele repair. The edges of the vaginal mucosa are held with 2 Allis clamps. Next injection of the same epinephrine solution is injected underneath the mucosa upwards towards the urethra. Metzenbaum scissors were used to dissect underneath the vaginal mucosa and cut along the way up to just below the urethra. Sharp and blunt dissection are used to dissect the bladder away from the vaginal mucosa. Once the bladder is freed, the cystocele is reduced with 0 Vicryl suture in [id number] stitches on either side of the cystocele. Next the edges of the vaginal mucosa are trimmed with Metzenbaum scissors. Next the vaginal mucosa is sutured with 0 Vicryl suture in a running locked fashion incorporating the vaginal cuff. The uterosacral ligaments were also tied together in the midline prior to completely closing the vaginal cuff. Excellent hemostasis is noted. The Ohara catheter is inserted and clear urine is noted. Next attention is turned to the posterior repair. The introitus is grasped at the 4 and 8 o'clock position with 2 Allis clamps. Injection of the same epinephrine solution was injected underneath the vaginal mucosa upwards towards the apex of the vagina. Next a triangle her piece of tissue is removed between the 2 Allis clamps with the scalpel. A small scissors are used to dissect underneath the vaginal mucosa upwards towards the vaginal cuff cutting along the way. The edges of the vaginal mucosa are held with Allis clamps. The vaginal mucosa is dissected away from the enterocele and rectocele with sharp and blunt dissection. The enterocele was then reduced with 0 Vicryl suture in [id number] stitches underneath the vaginal mucosa. The rectocele was then reduced with 0 Vicryl suture in interrupted [id number] stitches. Next the edges of the vaginal mucosa are trimmed and then the vaginal mucosa is sutured with 0 Vicryl suture in a running locked fashion up to the introitus and then brought underneath the tissues and whipstitched along the subcutaneous tissue to the apex of the perineum and then brought up in a subcuticular fashion to the introitus and tied. Excellent hemostasis is noted. Next the vagina is packed with one-inch iodoform gauze with bacitracin ointment. Clear urine is noted out of the Ohara catheter. All sponge and needle counts are correct and the patient is then taken to recovery room in stable condition.
[2020-02-26] MEDS ORDERED: HYDROcodone/APAP 5-325MG 1 EACH TAB PO PRN (09:05)
[2020-02-26] MEDS ORDERED: ONDANSETRON 4 MG/2 ML VIAL IVP PRN (09:05)
[2020-02-26] MEDS ORDERED: SIMETHICONE 80 MG CHEWABLE PO PRN (09:05)
[2020-02-26] MEDS ORDERED: KETOROLAC 15 MG/ML 1 ML VIAL IVP PRN (09:05)
[2020-02-26] MEDS ORDERED: METOCLOPRAMIDE 5 MG/ML 2 ML VIAL IVP PRN (09:05)
[2020-02-26] MEDS ORDERED: WHEAT DEXTRIN PO SCH (09:05)
[2020-02-26] MEDS ORDERED: ZOLPIDEM 5 MG TAB PO PRN (09:05)
[2020-02-26] MEDS ORDERED: IBUPROFEN 600 MG TAB PO PRN (09:05)
[2020-02-26] MEDS: SENNOSIDES-DOCUSATE SODIUM 1 EACH TAB PO SCH ×2 (10:04→20:08)
[2020-02-27] MEDS: LACTATED RINGERS 1,000 ML IV SCH (00:27)
[2020-02-27 06:02] VITALS: TEMP 98.2
[2020-02-27 06:28] LABS: Basophils % (A) 0 %; Eosinophils # (A) 0.1 k/uL (0-0.7); Eosinophils % (A) 1 %; HCT 35.3 % (34.0-46.0); HGB 11.1 gm/dL (11.4-16.0); Lymphocytes # (A) 1.3 k/uL (1.0-4.8); Lymphocytes % (A) 13 %; MCH 29.7 pg (25.0-35.0); MCHC 31.5 g/dL (31.0-37.0); MCV 94.2 fL (80.0-100.0); Mean Platelet Volume 8.5; Monocytes # (A) 0.5 k/uL (0-1.0); Monocytes % (A) 5 %; Neutrophils # (A) 7.8 k/uL (1.3-7.7); Neutrophils % (A) 80 %; Platelet Count 167 k/uL (150-450); RBC 3.75 m/uL (3.80-5.40); RDW 12.5 % (11.5-15.5); WBC 9.7 k/uL (3.8-10.6)
--- NOTE | 2020-02-27 06:50 | P.PN ---
Progress Note - Text 02/27/20 632am 79-year-old female status post vaginal hysterectomy with spinal Duramorph. Patient seen and evaluated this morning, patient has a VAS of 1 with no complains of nausea vomiting or pruritus. Patient doing well.
[2020-02-27] MEDS ORDERED: ACETAMINOPHEN TAB 325 MG TAB PO PRN (07:45)
--- NOTE | 2020-02-27 09:01 | P.DS ---
Providers Date of admission: 02/26/2020 Expected date of discharge: 02/27/20 Attending physician: Jessie Serrano Primary care physician: Анна Hemphill MD - Discharge Diagnosis(es) (1) Cystocele and rectocele with incomplete uterovaginal prolapse Current Visit: No Status: Acute Hospital Course: This is an 79-year-old female who underwent a total vaginal hysterectomy with anterior and posterior vaginal colporrhaphy on 02/26/2020. She did have a Duramorph spinal along with general anesthesia. She does complain of a slight sore throat this morning. She has been ambulating. She is passing flatus but no bowel movement yet. Her catheter was just removed this morning and she has not been able to urinate yet. Pain is well controlled at this time. Vital sig ns are stable. Abdomen is soft with positive bowel sounds 4. Liz-pad shows scant serosanguineous discharge. Extremities show negative Homans. Impression is status post total vaginal hysterectomy with anterior and posterior vaginal colporrhaphy postoperative day #1. Plan is to discharge home later today as long as she is passing flatus, urinating without difficulty, and her pain is well-controlled. She is advised to follow up in the office in 1 week for a postoperative check. She is advised to call the office if she has any further questions or concerns prior to her appointment time. She is advised no heavy lifting, stooping, bending, or strenuous activity. Procedures: Total vaginal hysterectomy with anterior and posterior vaginal colporrhaphy on 02/26/2020 Patient Condition at Discharge: Stable Plan - Discharge Summary Discharge Rx Participant: No New Discharge Prescriptions: New Ibuprofen [Motrin] 600 mg PO Q6HR PRN #60 tab PRN Reason: Mild Discomfort Acetaminophen Tab [Tylenol] 650 mg PO Q6HR PRN tab PRN Reason: Fever And/Or Mild Pain Continue Wheat Dextrin [Benefiber] 1 each PO DAILY Magnesium 500 mg PO DAILY Glucosamine/Chondr Jules A Sod [Osteo Bi-Flex Caplet] 1 each PO DAILY Discharge Medication List Glucosamine/Chondr Jules A Sod [Osteo Bi-Flex Caplet] 1 each PO DAILY 02/19/20 [History] Magnesium 500 mg PO DAILY 02/19/20 [History] Wheat Dextrin [Benefiber] 1 each PO DAILY 02/19/20 [History] Acetaminophen Tab [Tylenol] 650 mg PO Q6HR PRN tab 02/27/20 [Rx] Ibuprofen [Motrin] 600 mg PO Q6HR PRN #60 tab 02/27/20 [Rx] Follow up Appointment(s)/Referral(s): Jessie Serrano DO [Doctor of Osteopathic Medicine] - 1 Week Activity/Diet/Wound Care/Special Instructions: Activity as tolerated. Diet as tolerated. May shower, but no tub baths week. No intercourse. No heavy lifting or strenuous activity. Discharge Disposition: HOME SELF-CARE
[2020-02-27] MEDS: SENNOSIDES-DOCUSATE SODIUM 1 EACH TAB PO SCH (09:51)
[2020-02-27 12:08] VITALS: RESP 16
[2020-02-27 15:47] VITALS: BP 129/60; PULSE 75
== END 2020-02-27 17:29 | disposition home or self-care (01) ==
LOC: OR 05:41 → EDSTATUS 07:30 → 6PED 09:02 → OR 02-27 17:29
PROVIDERS: ATTEND Obstetrics & Gynecology
DX: N81.2 Incomplete uterovaginal prolapse (principal); Z87.19 Personal history of other diseases of the digestive system; Z98.890 Other specified postprocedural states; Z98.51 Tubal ligation status; Z90.49 Acquired absence of other specified parts of digestive tract; Z90.79 Acquired absence of other genital organ(s); Z80.0 Family history of malignant neoplasm of digestive organs; Z79.899 Other long term (current) drug therapy; Z88.5 Allergy status to narcotic agent
CPT/HCPCS: 86900; 86901; 88305; 85025 ×2; 86850; 88302; 57265; 58260; J0171; J1100; J0690; J2405

== ENCOUNTER 2021-05-15 10:18 | Emergency (ER) | payer MEDICARE, OTHER ==
[2021-05-15 10:44] VITALS: BP 129/63; PULSE 61; RESP 18; TEMP 97.6
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
--- NOTE | 2021-05-15 11:21 | XR ---
EXAMINATION TYPE: XR lumbosacral spine min 4V DATE OF EXAM: 05/15/2021 CLINICAL HISTORY: pain COMPARISON: NONE TECHNIQUE: Frontal, lateral, and oblique images of the lumbar spine are obtained. FINDINGS: Noted are superior endplate compression fractures of L1 and L3 mild in degree with loss of height of approximately 25% at each site. No bony retropulsion identified. No additional fractures no [place]. Mild degenerative change noted at L4-5 and L5-S1 as well as the facet joints. IMPRESSION: Mild superior endplate compression fractures of L1 and L3 of uncertain age and/or etiolog y. No radiographic evidence to suggest bony retropulsion.
[2021-05-15] MEDS ORDERED: LIDOCAINE 5% PATCH TOPICAL SCH (12:15)
== END 2021-05-15 13:01 | disposition home or self-care (01) ==
LOC: EC 10:18
DX: S39.012A Strain of muscle, fascia and tendon of lower back, initial encounter (principal); Z88.5 Allergy status to narcotic agent; X50.0XXA Overexertion from strenuous movement or load, initial encounter
CPT/HCPCS: 72110; 99283

== ENCOUNTER 2021-05-16 15:25 | Emergency (ER) | payer MEDICARE, OTHER ==
[2021-05-16 16:25] VITALS: BP 157/69; PULSE 79; RESP 20; TEMP 98.8
[2021-05-16] MEDS ORDERED: KETOROLAC 30 MG/ML 1 ML VIAL IVP STA (16:55)
[2021-05-16] MEDS ORDERED: HYDROmorphone 0.5 MG/0.5 ML SYRINGE IVP STA (16:56)
[2021-05-16] MEDS ORDERED: ONDANSETRON 4 MG/2 ML VIAL IVP STA (16:56)
--- NOTE | 2021-05-16 17:11 | ED ---
Back Pain HPI - General Chief Complaint: Back Pain/Injury Stated Complaint: revisit - low back pain Time Seen by Provider: 05/16/21 16:32 Source: patient, family, RN notes reviewed Limitations: no limitations - History of Present Illness Initial Comments: This an 80-year-old female presents emergency department with chief complaint low back pain. This started a few days ago after trying to break up her dogs from fighting. Patient states she was pulling. Heart started having pain right after. She denies any bowel, bladder incontinence or retention of saddle anesthesias. Patient states it's low right back pain nothing in the center states or twists side. Does not radiate down to her leg but states her some pain to her buttocks. She is able and they put pain is much worse when she moves around. Patient attempted with PCP but was unable to get in the office today they referred back to the emergency department. Patient was discharged lidocaine patch was was not covered by her insurance and she has not given any pain meds at that time. - Related Data Home Medications Medication Instructions Recorded Confirmed Glucosamine/Chondr Jules A Sod [Osteo 1 each PO DAILY 02/19/20 02/26/20 Bi-Flex Caplet] Magnesium 500 mg PO DAILY 02/19/20 02/26/20 Wheat Dextrin [Benefiber] 1 each PO DAILY 02/19/20 02/26/20 Previous Rx's Medication Instructions Recorded Acetaminophen Tab [Tylenol] 650 mg PO Q6HR PRN tab 02/27/20 Ibuprofen [Motrin] 600 mg PO Q6HR PRN #60 tab 02/27/20 Lidocaine [Lidoderm 5% Patch] 1 patch TRANSDERM DAILY 10 Days 05/15/21 #10 patch HYDROcodone/APAP 10-325MG [Milo 1 tab PO Q6HR PRN 3 Days #12 tab 05/16/21 10-325] methocarbamoL [Robaxin] 500 mg PO TID PRN #15 tab 05/16/21 Allergies Allergy/AdvReac Type Severity Reaction Status Date / Time codeine AdvReac Abdominal Verified 05/16/21 16:23 Pain Review of Systems ROS Statement: Those systems with pertinent positive or pertinent negative responses have been documented in the HPI. ROS Other: All systems not noted in ROS Statement are negative. Past Medical History Past Medical History: No Reported History Additional Past Medical History / Comment(s): Hx Subarachnoid hemorrhage 1971. Leaky heart valve. Left hand carpal tunnel, having surgery 02/20/20. Dizziness from Vertigo recently. Hx Pancreatitis. History of Any Multi-Drug Resistant Organisms: None Reported Past Surgical History: Appendectomy, Cholecystectomy, Tubal Ligation Additional Past Surgical History / Comment(s): Hemorrhoidectomy, R. salpingectomy & R. ovarian cystectomy, colonoscopy. Past Anesthesia/Blood Transfusion Reactions: No Reported Reaction Past Psychological History: No Psychological Hx Reported Smoking Status: Never smoker Past Alcohol Use History: Occasional Past Drug Use History: None Reported - Past Family History Mother Additional Family Medical History / Comment(s): Mother from old age. grandmother Additional Family Medical History / Comment(s): Stomach cancer at age 72. General Exam Limitations: no limitations General appearance: alert, in no apparent distress Head exam: Present: atraumatic, normocephalic, normal inspection Eye exam: Present: normal appearance, PERRL, EOMI. Absent: scleral icterus, conjunctival injection, periorbital swelling Respiratory exam: Present: normal lung sounds bilaterally. Absent: respiratory distress, wheezes, rales, rhonchi, stridor Cardiovascular Exam: Present: regular rate, normal rhythm, normal heart sounds. Absent: systolic murmur, diastolic murmur, rubs, gallop, clicks GI/Abdominal exam: Present: soft, normal bowel sounds. Absent: distended, tenderness, guarding, rebound, rigid Back exam: Present: normal inspection, full ROM, tenderness, muscle spasm, paraspinal tenderness. Absent: CVA tenderness (R), CVA tenderness (L), vertebral tenderness Neurological exam: Present: alert, oriented X3, CN II-XII intact, reflexes normal. Absent: motor sensory deficit Course Vital Signs 05/16/21 16:23 Temperature 98.8 F Pulse Rate 79 Respiratory 20 Rate Blood Pressure 157/69 O2 Sat by Pulse 98 Oximetry Medical Decision Making - Medical Decision Making Patient's pain is greatly improved at this time. Did review imaging showing compression fractures which are old patient had known compression fractures. She has no midline tenderness no red flag symptoms. Patient discharged in stable condition return parameters were discussed. Disposition Clinical Impression: Lumbar strain Disposition: HOME SELF-CARE Condition: Stable Instructions (If sedation given, give patient instructions): Acute Low Back Pain (ED) Additional Instructions: Please return to the Emergency Department if symptoms worsen or any other concerns. Prescriptions: HYDROcodone/APAP 10-325MG [Milo 10-325] 1 tab PO Q6HR PRN 3 Days #12 tab PRN Reason: pain methocarbamoL [Robaxin] 500 mg PO TID PRN #15 tab PRN Reason: muscle spasms Is patient prescribed a controlled substance at d/c from ED?: No Referrals: Nonstaff,Physician [REFERRING] - 1-2 days Time of Disposition: 17:41
== END 2021-05-16 17:52 | disposition home or self-care (01) ==
LOC: EC 15:25
DX: S39.012A Strain of muscle, fascia and tendon of lower back, initial encounter (principal); Z88.5 Allergy status to narcotic agent; X50.0XXA Overexertion from strenuous movement or load, initial encounter
CPT/HCPCS: 99283; 96374; 96375; J2405; J1885; J1170

== ENCOUNTER → 2021-10-13 | Outpatient (CLI) | payer MEDICARE, OTHER ==
--- NOTE | 2021-10-13 12:23 | BD ---
EXAMINATION TYPE: Axial Bone Density DATE OF EXAM: 10/13/2021 COMPARISON: NONE CLINICAL HISTORY: 80 years year old Female. ICD-10 CODE: Z87.81 PERSONAL HISTORY OF (HEALED) TRAUMAT , Z78.0 Height: 59.5 Weight: 121.8 FRAX RISK QUESTIONS: Alcohol (3 or more units per day): NO Family History (Parent hip fracture): NO Glucocorticoids (More than 3mos): NO History of Fracture in Adulthood: YES Secondary Osteoporosis: 1. Type 1 Diabetes: NO 2. Hyperthyroidism: NO 3. Menopause before 45: NO 4. Malnutrition: NO 5. Chronic liver disease: NO Rheumatoid Arthritis: NO Current Tobacco Use: NO RISK FACTORS HISTORY OF: Hip Fracture (Right/Left): NO Spine Fracture: YES X2 When: 2018, 2020 History of Wrist Fracture: RT When: AGE 32 Surgery to Spine/Hip(right/left)/Wrist (right/left): YES When: SPINE 2018 AND 2020, LT CARPAL TUNNEL AGE 76 Family History of Osteoporosis: NO Active: YES Diet low in dairy products/other sources of calcium: NO Postmenopausal woman: YES Take estrogen and/or progesterone medications: NO Lost more than 2 inches in height since high school: YES Frequent falls: NO Poor Health: NO Hyperparathyroidism: NO Adrenal Insufficiency: NO MEDICATIONS: Prednisone or other steroids: NO Thyroid Medications: NO Osteoporosis Medications: OSTEO BI-FLEX How Long: PAST 2 YEARS Additional Medications: NO PRESCRIPTION MEDS, MULTI VIT., Additional History: EXAM MEASUREMENTS: Bone mineral density about the R hip (g/cm2): 0.587 Bone mineral density about the L hip (g/cm2): 0.654 T Score values are as follows: -----R Neck: -3.2 -----L Neck: -2.8 -----R Total: -3.3 -----L Total: -2.6 BASELINE STUDY FRAX%s: The graph provided illustrates a 36.2% chance for a major osteoporotic fx and a 15.6% chance for the hips probability for fx in 10 years time. IMPRESSION: Osteoporosis (T Score less than -2.5). There is increased fracture risk and therapy is usually indicated based on age. Re-Screen 1-2 years. NOTE: T-SCORE=SD OF THE YOUNG ADULT MEAN.
== END | disposition home or self-care (01) ==
LOC: RADBDWWP 11:05
PROVIDERS: ATTEND Family Medicine
DX: Z78.0 Asymptomatic menopausal state (principal); Z87.81 Personal history of (healed) traumatic fracture
CPT/HCPCS: 77080

== ENCOUNTER 2024-01-04 12:41 | Day surgery (SDC) | payer MEDICARE, OTHER ==
[2024-01-04] MEDS: LACTATED RINGERS 1,000 ML BAG IV STA (14:41)
[2024-01-04 14:48] VITALS: TEMP 97
[2024-01-04] MEDS ORDERED: PROPOFOL 10 MG/ML 20 ML VIAL IV ONE (15:33)
[2024-01-04] MEDS ORDERED: LIDOCAINE 1% INJ 10MG/ML (20 ML MDV) ONE (15:33)
[2024-01-04] MEDS: LACTATED RINGERS 1,000 ML IV ONE (15:34)
--- NOTE | 2024-01-04 15:57 | P.PCN ---
Date of Procedure: 01/04/24 Procedure(s) Performed: Brief history: Patient is a pleasant 83-year-old white female scheduled for an elective upper endoscopy as well as colonoscopy as a part of evaluation of longstanding history of GERD and intermittent lower abdominal pain/change in bowel habits for the last several months duration. Procedure performed: Esophagogastroduodenoscopy with biopsy Colonoscopy Preoperative diagnosis: GERD Abdominal pain and change in bowel habits Anesthesia: MAC Procedure: After informed consent was obtained from the patient was brought into the endoscopy unit and IV sedation was administered by anesthesia under continuous monitoring. Initially upper endoscopy was done. The Olympus GF 160 video endoscope was inserted inserted into the mouth and esophagus intubated without any difficulty and was gradually advanced into the stomach and duodenum and carefully examined. The bulb and second part of the duodenum appeared normal. The scope was then withdrawn into the stomach adequately insufflated with air and upon careful examination the antrum few erosions in the antrum that was biopsied. Mucosa of the body, cardia and fundus appeared normal. The scope was then withdrawn into the esophagus. Mild hiatal hernia noted. The GE junction was located at 40 cm to the incisors. It appeared regular with no erythema erosions or ulcerations. Rest of the esophagus appeared normal. Patient tolerated the procedure well. At this time the patient continued to remain sedation. Initial digital rectal examination was normal. Olympus CF 160 video colonoscope was then inserted into the rectum and gradually advanced to the cecum without any difficulty. Careful examination was performed as the scope was gradually being withdrawn. The prep was excellent. The cecum, ascending colon, transverse colon, descending colon, sigmoid colon and rectum appeared normal. Scattered sigmoid diverticulosis. Retroflexion was performed in the rectum and no lesions were noted. Patient tolerated the procedure well. Impression: 1. Upper endoscopy revealed mild antral erosive gastritis and small hiatal hernia. 2. Colonoscopy revealed scattered sigmoid diverticulosis but no evidence of colorectal neoplasia Recommendations: Findings of this examination were discussed with the patient as well as family. She was advised to follow-up with the biopsy results. Recommend a high-fiber diet and fiber supplements on a regular basis.
[2024-01-04 16:23] VITALS: BP 159/72; PULSE 69; RESP 18
== END 2024-01-04 16:50 | disposition home or self-care (01) ==
LOC: ORWHC2ENDO 12:41
PROVIDERS: ATTEND Internal Medicine Gastroenterology
DX: K29.50 Unspecified chronic gastritis without bleeding (principal); K44.9 Diaphragmatic hernia without obstruction or gangrene; Z88.5 Allergy status to narcotic agent
CPT/HCPCS: 88305; 88342; 45378; 43239; J2001; J2704